=== PATIENT | male | born 1970 | race Caucasian/White ===

== ENCOUNTER 2024-03-14 22:02 | Inpatient (IN) | payer BC, MEDICAID ==
[~2024-03-14] VITALS: Ht 172.7 cm; Wt 93.4 kg
[2024-03-14] MEDS ORDERED: ACETAMINOPHEN 650 MG/SUPP.RECT RC ONE (22:38)
[2024-03-14] MEDS ORDERED: PIPERACI/TAZO 3.375GM/D5W 50ML PB IV ONE (22:38)
[2024-03-14] MEDS ORDERED: VANCOMYCIN 1 GM /D5W 250 ML PB IV ONE (22:38)
[2024-03-14] MEDS: VANCOMYCIN 1 GM in IV D5W 250 ML IV ONE (22:51)
[2024-03-14] MEDS: PIPERACILLIN /TAZOBACTAM 3.375 G in IV D5W 50 ML IV ONE (22:51)
[2024-03-14] MEDS: IV NS 0.9% 1,000 ML BAG IV ONE (22:51)
[2024-03-14] MEDS: ACETAMINOPHEN 650 MG/SUPP.RECT RC ONE (22:51)
[2024-03-14 23:02] LABS: BASOPHILS % (AUTO) 0.1 % (0.0-2.0); HEMATOCRIT 52 % (39-51); LYMPHOCYTES % (AUTO) 5.7 % (20.0-44.0); MEAN CORPUSCULAR HEMOGLOBIN 32 PG (26.0-33.0); MEAN CORPUSCULAR HGB CONC 35 g/dl (31.0-36.0); MEAN CORPUSCULAR VOLUME 92 fL (80-96); MONOCYTES # (AUTO) 1.8 K/uL (0.1-1.30); NEUTROPHILS # (AUTO) 15.1 K/uL (1.8-8.9); NEUTROPHILS % (AUTO) 84.2 % (43.0-81.0); PLATELET COUNT (AUTO) 186 K/uL (150-450); RED CELL DISTRIBUTION WIDTH 13.2 % (11.5-15.0); WHITE BLOOD COUNT (AUTO) 17.9 K/uL (4.3-11.0)
[2024-03-14 23:09] LABS: CALCIUM, SERUM 9.2 mg/dL (8.5-10.1); CARBON DIOXIDE 32 mmol/L (21-32); CHLORIDE 98 mmol/L (98-107); CREATININE 2.2 mg/dL (0.6-1.3); GLUCOSE 183 mg/dL (74-106); POTASSIUM 3.5 mmol/L (3.5-5.1); SODIUM SERUM 140 mmol/L (136-145); UREA NITROGEN, BLOOD 31 mg/dL (7-18)
[2024-03-14 23:12] LABS: APPEARANCE,URINE CLEAR (CLEAR); BILIRUBIN,URINE 2+ (NEGATIVE); BLOOD, URINE 3+ Ery/uL (NEGATIVE); COLOR,URINE YELLOW (YELLOW); KETONES,URINE TRACE mg/dL (NEGATIVE); LEUKOCYTE ESTERASE ,URINE NEGATIVE (NEGATIVE); NITRITE, URINE POSITIVE (NEGATIVE); PROTEIN,URINE 3+ mg/dl (NEGATIVE); UGLUCOSE NEGATIVE (NEGATIVE)
[2024-03-14 23:19] LABS: INR 1.09 (0.91-1.10); PARTIAL THROMBOPLASTIN TIME 25.8 SEC (24.3-34.3); PROTHROMBIN TIME 11.5 SECS (9.2-11.1)
[2024-03-14 23:21] LABS: LACTIC ACID 4.3 mmol/L (0.4-2.0)
[2024-03-14 23:24] LABS: ALANINE AMINOTRANSFERASE 127 U/L (12-78); ALBUMIN 4.1 g/dL (3.4-5.0); ALKALINE PHOSPHATASE 80 U/L (46-116); ASPARTATE AMINOTRANSFERASE 312 U/L (15-37); BILIRUBIN,DIRECT 0.5 mg/dL (0.0-0.2); BILIRUBIN,TOTAL 1.4 mg/dL (0.2-1.0); TOTAL PROTEIN, SERUM 9.1 g/dL (6.4-8.2)
[2024-03-14 23:30] LABS: ADD URINE CULTURE YES; WBC,URINE 0-2 /HPF (0-3)
[2024-03-14 23:31] LABS: BACTERIA,URINE Moderate /HPF (None Seen); COARSE GRANULAR CASTS,URINE Moderate /LPF (None Seen); SQUAMOUS EPITHELIAL CELL,UR 0-2 /HPF (None Seen)
[2024-03-14 23:44] LABS: LYMPHOCYTES % (MANUAL) 8 % (16-48); MONOCYTES % (MANUAL) 6 % (0-11.0); NEUTROPHILS % (MANUAL) 86 (42-76)
[2024-03-14 23:45] LABS: ANISOCYTOSIS 1+; PLATELET ESTIMATE ADEQUATE
[2024-03-15] VITALS (24 sets, daily range): BP systolic 112–199; BP diastolic 67–123; TEMP 98.1–101.5; O2SAT 86–96
[2024-03-15] MEDS: ASPIRIN 300 MG/SUPP.RECT RC ONE (00:34)
[2024-03-15] MEDS ORDERED: ONDANSETRON HCL/PF 4 MG/2 ML VIAL IVP PRN (01:00)
[2024-03-15] MEDS ORDERED: IV 1/2NS 1000 ML 1,000 ML IV SCH (01:00)
[2024-03-15] MEDS ORDERED: Z GUARD REMEDY 4 OZ OINT TP PRN (01:00)
[2024-03-15] MEDS: hydrALAZINE HCL IV 20 MG VIAL IV PRN (01:36)
[2024-03-15] MEDS: IV NS 0.9% 1,000 ML IV SCH (02:57)
[2024-03-15] MEDS ORDERED: PIPERACILLIN /TAZOBACTAM 3.375 G in IV D5W 50 ML IV SCH (07:00)
[2024-03-15 07:28] LABS: BASOPHILS % (AUTO) 0.1 % (0.0-2.0); HEMATOCRIT 46 % (39-51); HEMOGLOBIN 16.1 g/dL (13.5-17.5); LYMPHOCYTES # (AUTO) 1.1 K/uL (0.8-4.8); LYMPHOCYTES % (AUTO) 6.1 % (20.0-44.0); MEAN CORPUSCULAR HEMOGLOBIN 32 PG (26.0-33.0); MEAN CORPUSCULAR HGB CONC 35 g/dl (31.0-36.0); MEAN CORPUSCULAR VOLUME 92 fL (80-96); MONOCYTES # (AUTO) 1.7 K/uL (0.1-1.30); MONOCYTES % (AUTO) 9.3 % (2.0-12.0); NEUTROPHILS # (AUTO) 15.4 K/uL (1.8-8.9); NEUTROPHILS % (AUTO) 84.5 % (43.0-81.0); PLATELET COUNT (AUTO) 142 K/uL (150-450); RED BLOOD CELL COUNT(AUTO) 5.01 MIL/uL (4.5-6.0); RED CELL DISTRIBUTION WIDTH 13.3 % (11.5-15.0); WHITE BLOOD COUNT (AUTO) 18.2 K/uL (4.3-11.0)
[2024-03-15 07:53] LABS: ALBUMIN 3.1 g/dL (3.4-5.0); BILIRUBIN,TOTAL 1.1 mg/dL (0.2-1.0); CALCIUM, SERUM 7.7 mg/dL (8.5-10.1); CREATININE 1.6 mg/dL (0.6-1.3); POTASSIUM 3.5 mmol/L (3.5-5.1)
[2024-03-15] MEDS: PANTOPRAZOLE 40 MG VIAL IV SCH (09:34)
[2024-03-15] MEDS: PIPERACILLIN /TAZOBACTAM 3.375 G in IV D5W 100 ML IV SCH (09:34)
[2024-03-15] MEDS: HEPARIN SODIUM, PORCINE 5000 UNITS/1 ML VIAL SQ ONE (09:35)
[2024-03-15] MEDS: ACETYLCYSTEINE 10% SOLN 400 MG/4 ML VIAL NEB SCH (12:00)
[2024-03-15] MEDS: IPRATROPIUM NEB FS 0.5 MG/2.5 ML AMPUL.NEB NEB SCH (12:00)
[2024-03-15] MEDS: ALBUTEROL HALF STRENGTH 1.25 MG/3 ML VIAL.NEB NEB SCH (12:00)
[2024-03-15] MEDS: VANCOMYCIN 1 GM in IV D5W 250ml IV SCH (12:48)
[2024-03-15 13:01] LABS: ABG BASE EXCESS 0.7 mmol/L (-2.0-3.0); ABG OXYGEN SATURATION 90.7 % (94.0-98.0); ABG PCO2 52.9 mmHg (35.0-48.0); ABG PH 7.338 (7.350-7.450); ABG PO2 60.7 mmHg (83.0-108.0); ABG TOTAL HEMOGLOBIN 17.5 G/dL (13.5-17.5); MetHb 0.3 % (0.0-1.5); O2Hb 89.5 % (94.0-97.0); SITE, ABG RIGHT RADIAL
[2024-03-15] MEDS: ACETAMINOPHEN 650 MG/SUPP.RECT RC PRN (13:36)
[2024-03-15] MEDS: Sodium Bicarbonate 100 MEQ in IV D5 / 0.2% NACL 1,000 ML IV PRN (14:10)
[2024-03-15] MEDS: IV D5W 1,000 ML IV ONE (14:22)
[2024-03-15] MEDS ORDERED: LIDOCAINE 1% INJ 50 ML MDV IJ ONE (16:30)
[2024-03-15 16:36] LABS: CREATININE, URINE 115.8 MG/DL (30.0-125.0); URINE TOTAL PROTEIN 172.7 mg/dL (0-11.9)
[2024-03-15 16:38] LABS: AMPHETAMINE, URINE NEGATIVE (NEGATIVE); BARBITURATE, URINE NEGATIVE (NEGATIVE); BENZODIAZEPINE, URINE NEGATIVE (NEGATIVE); CANNABINOID, URINE NEGATIVE (NEGATIVE); COCCAINE, URINE NEGATIVE (NEGATIVE); OPIATE, URINE NEGATIVE (NEGATIVE); PHENCYCLIDINE SCREEN,URINE NEGATIVE (NEGATIVE)
[2024-03-15] MEDS ORDERED: VANCOMYCIN HCL 1.25 GM in IV D5W 250 ML IV SCH (17:00)
[2024-03-15 17:17] LABS: ABG BASE EXCESS 1.7 mmol/L (-2.0-3.0); ABG PCO2 44.5 mmHg (35.0-48.0); ABG PH 7.401 (7.350-7.450); ABG PO2 61.7 mmHg (83.0-108.0); COHb 0.2 % (0.5-1.5); MetHb 0.3 % (0.0-1.5); O2Hb 91.5 % (94.0-97.0)
[2024-03-15 18:25] LABS: CHOLESTEROL 221 mg/dL (<200); HDL CHOLESTEROL 31 mg/dL (40-60); LDL 169 mg/dL (0-99); TRIGLYCERIDES 195 mg/dL (30-150)
[2024-03-15] MEDS: ACYCLOVIR IV 500 MG in IV D5W 100 ML IV SCH (21:00)
[2024-03-15] MEDS: SODIUM BICARBONATE SYR 50 MEQ/50 ML DISP.SYRIN ONE (21:41)
[2024-03-16] VITALS (47 sets, daily range): BP systolic 100–176; BP diastolic 69–122; TEMP 97.7–101.8; O2SAT 81–99
[2024-03-16] MEDS: hydrALAZINE HCL IV 20 MG VIAL IV PRN ×2 (00:15→03:13)
[2024-03-16 04:49] LABS: BASOPHILS % (AUTO) 0.2 % (0.0-2.0); HEMATOCRIT 43 % (39-51); HEMOGLOBIN 14.9 g/dL (13.5-17.5); LYMPHOCYTES # (AUTO) 0.5 K/uL (0.8-4.8); LYMPHOCYTES % (AUTO) 3.2 % (20.0-44.0); MEAN CORPUSCULAR HEMOGLOBIN 32 PG (26.0-33.0); MEAN CORPUSCULAR HGB CONC 34 g/dl (31.0-36.0); MEAN CORPUSCULAR VOLUME 92 fL (80-96); MONOCYTES # (AUTO) 1.2 K/uL (0.1-1.30); MONOCYTES % (AUTO) 7.3 % (2.0-12.0); NEUTROPHILS # (AUTO) 14.2 K/uL (1.8-8.9); NEUTROPHILS % (AUTO) 89.3 % (43.0-81.0); PLATELET COUNT (AUTO) 145 K/uL (150-450); RED BLOOD CELL COUNT(AUTO) 4.71 MIL/uL (4.5-6.0); RED CELL DISTRIBUTION WIDTH 13.3 % (11.5-15.0); WHITE BLOOD COUNT (AUTO) 15.9 K/uL (4.3-11.0)
[2024-03-16 05:10] LABS: ALBUMIN 2.8 g/dL (3.4-5.0); BILIRUBIN,TOTAL 1.2 mg/dL (0.2-1.0); CALCIUM, SERUM 7.4 mg/dL (8.5-10.1); CREATININE 1.7 mg/dL (0.6-1.3); MAGNESIUM 2.3 mg/dL (1.8-2.4); PHOSPHORUS 3.7 mg/dL (2.5-4.9); POTASSIUM 3.5 mmol/L (3.5-5.1); TOTAL PROTEIN, SERUM 6.5 g/dL (6.4-8.2)
[2024-03-16] MEDS ORDERED: Sodium Bicarbonate 100 MEQ in IV D5 / 0.2% NACL 1,000 ML IV SCH (07:45)
[2024-03-16] MEDS: IV D5/0.45 NACL 1,000 ML IV PRN (08:15)
[2024-03-16 09:27] LABS: ABG BASE EXCESS 7.4 mmol/L (-2.0-3.0); ABG OXYGEN SATURATION 92.6 % (94.0-98.0); ABG PCO2 57.2 mmHg (35.0-48.0); ABG PH 7.396 (7.350-7.450); ABG PO2 62.7 mmHg (83.0-108.0); ABG TOTAL HEMOGLOBIN 15.1 G/dL (13.5-17.5); COHb 0.7 % (0.5-1.5); MetHb 0.2 % (0.0-1.5); O2Hb 91.8 % (94.0-97.0); SITE, ABG RIGHT RADIAL
[2024-03-16] MEDS ORDERED: ETOMIDATE 2 MG/ML VIAL IV ONE (14:34)
[2024-03-16 14:44] LABS: ABG BASE EXCESS 6.4 mmol/L (-2.0-3.0); ABG OXYGEN SATURATION 97.2 % (94.0-98.0); ABG PCO2 43.7 mmHg (35.0-48.0); ABG PH 7.468 (7.350-7.450); ABG PO2 90.6 mmHg (83.0-108.0); ABG TOTAL HEMOGLOBIN 14.6 G/dL (13.5-17.5); COHb 0.3 % (0.5-1.5); MetHb 0.1 % (0.0-1.5); O2Hb 96.8 % (94.0-97.0); PEEP,BG 5 cm H2O; SITE, ABG RIGHT RADIAL; VT, ABG 550 mL
[2024-03-16 15:03] LABS: HIV-1 p24 ANTIGEN NON REACTIVE (NONREACTIVE); HIV-1/2 ANTIBODY NON REACTIVE (NONREACTIVE)
[2024-03-16] MEDS: ACYCLOVIR IV 500 MG in IV D5W 100 ML IV SCH (21:09)
[2024-03-17] VITALS (54 sets, daily range): BP systolic 109–162; BP diastolic 67–96; TEMP 99.9–100.8; O2SAT 94–100
[2024-03-17 04:55] LABS: BASOPHILS % (AUTO) 0.1 % (0.0-2.0); EOSINOPHILS % (AUTO) 0.1 % (0.0-6.0); HEMATOCRIT 38 % (39-51); HEMOGLOBIN 13.5 g/dL (13.5-17.5); LYMPHOCYTES # (AUTO) 0.9 K/uL (0.8-4.8); LYMPHOCYTES % (AUTO) 6.6 % (20.0-44.0); MEAN CORPUSCULAR HEMOGLOBIN 32 PG (26.0-33.0); MEAN CORPUSCULAR HGB CONC 35 g/dl (31.0-36.0); MEAN CORPUSCULAR VOLUME 91 fL (80-96); MONOCYTES # (AUTO) 0.8 K/uL (0.1-1.30); MONOCYTES % (AUTO) 6.2 % (2.0-12.0); NEUTROPHILS # (AUTO) 11.5 K/uL (1.8-8.9); PLATELET COUNT (AUTO) 122 K/uL (150-450); RED BLOOD CELL COUNT(AUTO) 4.21 MIL/uL (4.5-6.0); RED CELL DISTRIBUTION WIDTH 13.4 % (11.5-15.0); WHITE BLOOD COUNT (AUTO) 13.3 K/uL (4.3-11.0)
[2024-03-17 05:11] LABS: ALBUMIN 2.4 g/dL (3.4-5.0); BILIRUBIN,TOTAL 1.5 mg/dL (0.2-1.0); CALCIUM, SERUM 7.8 mg/dL (8.5-10.1); CREATININE 2.2 mg/dL (0.6-1.3)
[2024-03-17 05:18] LABS: POTASSIUM 2.5 mmol/L (3.5-5.1)
[2024-03-17] MEDS: POTASSIUM CL. PREMIX PERIPHER. 50 ML IV SCH ×2 (07:44→18:13)
[2024-03-17 08:10] LABS: PTH, INTACT 57 pg/mL (15-65)
[2024-03-17 08:10] LABS: FOLIC ACID > 20.0 ng/mL (>3.0)
[2024-03-17 09:30] LABS: ABG BASE EXCESS 9.1 mmol/L (-2.0-3.0); ABG OXYGEN SATURATION 92.2 % (94.0-98.0); ABG PCO2 41.4 mmHg (35.0-48.0); ABG PH 7.518 (7.350-7.450); ABG PO2 57.5 mmHg (83.0-108.0); ABG TOTAL HEMOGLOBIN 13.9 G/dL (13.5-17.5); COHb 0.3 % (0.5-1.5); MetHb 0.3 % (0.0-1.5); O2Hb 91.6 % (94.0-97.0); PEEP,BG 5 cm H2O; SITE, ABG RIGHT RADIAL; VT, ABG 525 mL
[2024-03-17] MEDS: LEVETIRACETAM (500MG) 500 MG in IV NS 0.9% 100 ML IV SCH (09:52)
[2024-03-17] MEDS: VANCOMYCIN HCL 1.25 GM in IV D5W 250 ML IV SCH (10:53)
[2024-03-17 15:15] LABS: CALCIUM, SERUM 7.8 mg/dL (8.5-10.1); CREATININE 2.4 mg/dL (0.6-1.3); POTASSIUM 2.8 mmol/L (3.5-5.1)
[2024-03-18] VITALS (49 sets, daily range): BP systolic 108–175; BP diastolic 75–107; TEMP 98.3–101.4; O2SAT 90–100
[2024-03-18 05:54] LABS: MAGNESIUM 2.3 mg/dL (1.8-2.4); PHOSPHORUS 2.4 mg/dL (2.5-4.9)
[2024-03-18 05:56] LABS: ALBUMIN 2.1 g/dL (3.4-5.0); BILIRUBIN,TOTAL 1.3 mg/dL (0.2-1.0); CALCIUM, SERUM 7.8 mg/dL (8.5-10.1); CREATININE 2.1 mg/dL (0.6-1.3); POTASSIUM 2.9 mmol/L (3.5-5.1); TOTAL PROTEIN, SERUM 5.8 g/dL (6.4-8.2)
[2024-03-18] MEDS: POTASSIUM CL. PREMIX PERIPHER. 50 ML IV SCH (06:33)
[2024-03-18 09:05] LABS: BASOPHILS % (AUTO) 0.1 % (0.0-2.0); EOSINOPHILS % (AUTO) 0.1 % (0.0-6.0); HEMATOCRIT 38 % (39-51); HEMOGLOBIN 12.8 g/dL (13.5-17.5); LYMPHOCYTES # (AUTO) 0.7 K/uL (0.8-4.8); LYMPHOCYTES % (AUTO) 5.1 % (20.0-44.0); MEAN CORPUSCULAR HEMOGLOBIN 32 PG (26.0-33.0); MEAN CORPUSCULAR HGB CONC 34 g/dl (31.0-36.0); MEAN CORPUSCULAR VOLUME 92 fL (80-96); MONOCYTES # (AUTO) 0.8 K/uL (0.1-1.30); MONOCYTES % (AUTO) 5.8 % (2.0-12.0); NEUTROPHILS # (AUTO) 11.5 K/uL (1.8-8.9); NEUTROPHILS % (AUTO) 88.9 % (43.0-81.0); PLATELET COUNT (AUTO) 145 K/uL (150-450); RED BLOOD CELL COUNT(AUTO) 4.08 MIL/uL (4.5-6.0); RED CELL DISTRIBUTION WIDTH 12.9 % (11.5-15.0); WHITE BLOOD COUNT (AUTO) 12.9 K/uL (4.3-11.0)
[2024-03-18 09:32] LABS: ALBUMIN 2.2 g/dL (3.4-5.0); BILIRUBIN,TOTAL 1.3 mg/dL (0.2-1.0); CALCIUM, SERUM 7.9 mg/dL (8.5-10.1); CREATININE 2.3 mg/dL (0.6-1.3); POTASSIUM 3.1 mmol/L (3.5-5.1); TOTAL PROTEIN, SERUM 5.9 g/dL (6.4-8.2)
[2024-03-18] MEDS: IV D5/ 0.9% NACL 1,000 ML IV ONE (12:25)
[2024-03-18] MEDS: Sodium Phosphate 15 MMOL in IV NS 0.9% 245 ML IV SCH (16:17)
[2024-03-18] MEDS: MEROPENEM 1 G in IV NS 0.9% 100 ML IV SCH (17:36)
[2024-03-19] VITALS (39 sets, daily range): BP systolic 115–180; BP diastolic 76–104; TEMP 98.4–100.4; O2SAT 92–99
[2024-03-19 05:26] LABS: BASOPHILS % (AUTO) 0.1 % (0.0-2.0); EOSINOPHILS % (AUTO) 0.4 % (0.0-6.0); HEMATOCRIT 31 % (39-51); HEMOGLOBIN 10.7 g/dL (13.5-17.5); LYMPHOCYTES # (AUTO) 0.8 K/uL (0.8-4.8); LYMPHOCYTES % (AUTO) 7.2 % (20.0-44.0); MEAN CORPUSCULAR HEMOGLOBIN 32 PG (26.0-33.0); MEAN CORPUSCULAR HGB CONC 35 g/dl (31.0-36.0); MEAN CORPUSCULAR VOLUME 93 fL (80-96); MONOCYTES # (AUTO) 0.8 K/uL (0.1-1.30); MONOCYTES % (AUTO) 6.9 % (2.0-12.0); NEUTROPHILS # (AUTO) 9.9 K/uL (1.8-8.9); NEUTROPHILS % (AUTO) 85.4 % (43.0-81.0); PLATELET COUNT (AUTO) 147 K/uL (150-450); RED BLOOD CELL COUNT(AUTO) 3.35 MIL/uL (4.5-6.0); RED CELL DISTRIBUTION WIDTH 12.9 % (11.5-15.0); WHITE BLOOD COUNT (AUTO) 11.6 K/uL (4.3-11.0)
[2024-03-19 05:39] LABS: BILIRUBIN,TOTAL 0.9 mg/dL (0.2-1.0); CALCIUM, SERUM 7.8 mg/dL (8.5-10.1); CREATININE 2.3 mg/dL (0.6-1.3); POTASSIUM 3.4 mmol/L (3.5-5.1); TOTAL PROTEIN, SERUM 5.6 g/dL (6.4-8.2)
[2024-03-19 07:38] LABS: ABG BASE EXCESS 3.8 mmol/L (-2.0-3.0); ABG OXYGEN SATURATION 94.4 % (94.0-98.0); ABG PCO2 32.6 mmHg (35.0-48.0); ABG PH 7.524 (7.350-7.450); ABG PO2 72.6 mmHg (83.0-108.0); COHb 0.3 % (0.5-1.5); MetHb 0.2 % (0.0-1.5); O2Hb 93.9 % (94.0-97.0); PEEP,BG 5 cm H2O; SITE, ABG RIGHT RADIAL; VT, ABG 500 mL
[2024-03-19] MEDS: IV D5/ 0.9% NACL 1,000 ML IV PRN (07:58)
[2024-03-19] MEDS: POTASSIUM CL. PREMIX PERIPHER. 50 ML IV SCH (11:53)
[2024-03-19] MEDS: JEVITY 1.2 CAL 1,000 ML BOTTLE GT PRN (12:56)
[2024-03-19] MEDS: DOXYCYCLINE 100 MG in IV D5W 100 ML IV SCH (20:59)
[2024-03-20] VITALS (45 sets, daily range): BP systolic 125–183; BP diastolic 77–136; TEMP 98.7–101.5; O2SAT 97–100
[2024-03-20 04:47] LABS: BASOPHILS % (AUTO) 0.3 % (0.0-2.0); EOSINOPHILS # (AUTO) 0.1 K/uL (0.0-0.7); EOSINOPHILS % (AUTO) 1.1 % (0.0-6.0); HEMATOCRIT 32 % (39-51); LYMPHOCYTES # (AUTO) 0.8 K/uL (0.8-4.8); LYMPHOCYTES % (AUTO) 8.2 % (20.0-44.0); MEAN CORPUSCULAR HEMOGLOBIN 32 PG (26.0-33.0); MEAN CORPUSCULAR HGB CONC 34 g/dl (31.0-36.0); MEAN CORPUSCULAR VOLUME 95 fL (80-96); MONOCYTES # (AUTO) 0.9 K/uL (0.1-1.30); MONOCYTES % (AUTO) 9.8 % (2.0-12.0); NEUTROPHILS # (AUTO) 7.6 K/uL (1.8-8.9); NEUTROPHILS % (AUTO) 80.6 % (43.0-81.0); PLATELET COUNT (AUTO) 179 K/uL (150-450); RED BLOOD CELL COUNT(AUTO) 3.43 MIL/uL (4.5-6.0); RED CELL DISTRIBUTION WIDTH 13.4 % (11.5-15.0); WHITE BLOOD COUNT (AUTO) 9.5 K/uL (4.3-11.0)
[2024-03-20 05:07] LABS: BILIRUBIN,TOTAL 0.7 mg/dL (0.2-1.0); CALCIUM, SERUM 8.1 mg/dL (8.5-10.1); POTASSIUM 3.4 mmol/L (3.5-5.1); TOTAL PROTEIN, SERUM 5.8 g/dL (6.4-8.2)
[2024-03-20] MEDS: PANTOPRAZOLE 40 MG/PACK PACK GT SCH (08:32)
[2024-03-20] MEDS: POLYVINYL ALCOHOL 15 ML BOTTLE EACHEYE PRN (08:46)
[2024-03-20 10:10] LABS: METHYLMALONIC ACID 340 nmol/L (0-378)
[2024-03-20] MEDS: PROPOFOL 100 ML IV PRN (10:10)
[2024-03-20] MEDS: ROCURONIUM BROMIDE 50 MG/5 ML IV ONE (11:10)
[2024-03-20] MEDS: POTASSIUM CL. PREMIX PERIPHER. 50 ML IV SCH (11:56)
[2024-03-20 12:07] LABS: *SPE A/G RATIO 0.9 (0.7-1.7); *SPE ALBUMIN 2.9 g/dL (2.9-4.4); *SPE ALPHA-1-GLOBULIN 0.3 g/dL (0.0-0.4); *SPE ALPHA-2-GLOBULIN 0.9 g/dL (0.4-1.0); *SPE GLOBULIN, TOTAL 3.2 g/dL (2.2-3.9); *SPE M-SPIKE Not Observed g/dL (Not Observed); *SPE PROTEIN TOTAL 6.1 g/dL (6.0-8.5); *SPEGAMMA GLOBULIN 1.1 g/dL (0.4-1.8)
[2024-03-20 15:14] LABS: CSF GLUCOSE 79 mg/dL (40-70)
[2024-03-20 16:04] LABS: CSF APPEARANCE CLEAR (CLEAR); CSF COLOR COLORLESS (COLORLESS); CSF VOLUME 17.6 mL
[2024-03-20 16:06] LABS: CSF WHITE BLOOD CELL COUNT 0 /cumm (0-5)
[2024-03-20] MEDS: JEVITY 1.2 CAL 1,000 ML BOTTLE GT PRN (16:55)
[2024-03-20] MEDS: ACETAMINOPHEN 650 MG/20.3 ML UDC NG PRN (16:56)
[2024-03-21] VITALS (30 sets, daily range): BP systolic 134–176; BP diastolic 65–109; TEMP 99.5–99.9; O2SAT 91–98
[2024-03-21 04:44] LABS: BASOPHILS % (AUTO) 0.3 % (0.0-2.0); EOSINOPHILS # (AUTO) 0.1 K/uL (0.0-0.7); EOSINOPHILS % (AUTO) 1.2 % (0.0-6.0); HEMATOCRIT 32 % (39-51); LYMPHOCYTES # (AUTO) 0.9 K/uL (0.8-4.8); MEAN CORPUSCULAR HEMOGLOBIN 32 PG (26.0-33.0); MEAN CORPUSCULAR HGB CONC 34 g/dl (31.0-36.0); MEAN CORPUSCULAR VOLUME 94 fL (80-96); MONOCYTES # (AUTO) 1.1 K/uL (0.1-1.30); MONOCYTES % (AUTO) 12.6 % (2.0-12.0); NEUTROPHILS # (AUTO) 6.5 K/uL (1.8-8.9); NEUTROPHILS % (AUTO) 74.9 % (43.0-81.0); PLATELET COUNT (AUTO) 222 K/uL (150-450); RED CELL DISTRIBUTION WIDTH 13.2 % (11.5-15.0); WHITE BLOOD COUNT (AUTO) 8.6 K/uL (4.3-11.0)
[2024-03-21 04:46] LABS: CALCIUM, SERUM 8.1 mg/dL (8.5-10.1); CREATININE 1.8 mg/dL (0.6-1.3); POTASSIUM 3.6 mmol/L (3.5-5.1)
[2024-03-21 04:57] LABS: BILIRUBIN,TOTAL 0.5 mg/dL (0.2-1.0); TOTAL PROTEIN, SERUM 5.9 g/dL (6.4-8.2)
[2024-03-21] MEDS ORDERED: CIPROFLOXACIN HCL 3.5 GM TUBE EACHEYE SCH (20:00)
[2024-03-21] MEDS: TOBRAMYCIN/DEXAMETH OPHTH OINT 3.5 GM TUBE EACHEYE SCH (21:15)
[2024-03-21] MEDS: MORPHINE SULFATE INJ 2 MG/ML DISP.SYRIN IV PRN (23:38)
[2024-03-22] VITALS (27 sets, daily range): BP systolic 136–180; BP diastolic 77–122; TEMP 98–100.2; O2SAT 93–100
[2024-03-22 04:47] LABS: BASOPHILS % (AUTO) 0.4 % (0.0-2.0); EOSINOPHILS # (AUTO) 0.1 K/uL (0.0-0.7); HEMATOCRIT 30 % (39-51); HEMOGLOBIN 10.1 g/dL (13.5-17.5); LYMPHOCYTES # (AUTO) 0.9 K/uL (0.8-4.8); LYMPHOCYTES % (AUTO) 10.3 % (20.0-44.0); MEAN CORPUSCULAR HEMOGLOBIN 32 PG (26.0-33.0); MEAN CORPUSCULAR HGB CONC 34 g/dl (31.0-36.0); MEAN CORPUSCULAR VOLUME 95 fL (80-96); MONOCYTES # (AUTO) 1.2 K/uL (0.1-1.30); MONOCYTES % (AUTO) 12.9 % (2.0-12.0); NEUTROPHILS # (AUTO) 6.8 K/uL (1.8-8.9); NEUTROPHILS % (AUTO) 75.4 % (43.0-81.0); PLATELET COUNT (AUTO) 252 K/uL (150-450); RED BLOOD CELL COUNT(AUTO) 3.13 MIL/uL (4.5-6.0); RED CELL DISTRIBUTION WIDTH 13.5 % (11.5-15.0); WHITE BLOOD COUNT (AUTO) 9.1 K/uL (4.3-11.0)
[2024-03-22 05:01] LABS: CREATININE 1.9 mg/dL (0.6-1.3); POTASSIUM 3.9 mmol/L (3.5-5.1)
[2024-03-22 05:06] LABS: ALBUMIN 1.9 g/dL (3.4-5.0); BILIRUBIN,TOTAL 0.5 mg/dL (0.2-1.0); TOTAL PROTEIN, SERUM 5.6 g/dL (6.4-8.2)
[2024-03-22 10:45] LABS: ABG BASE EXCESS 2.5 mmol/L (-2.0-3.0); ABG OXYGEN SATURATION 94.5 % (94.0-98.0); ABG PCO2 38.2 mmHg (35.0-48.0); ABG PH 7.458 (7.350-7.450); ABG PO2 74.4 mmHg (83.0-108.0); ABG TOTAL HEMOGLOBIN 11.1 G/dL (13.5-17.5); COHb 0.1 % (0.5-1.5); MetHb 0.2 % (0.0-1.5); O2Hb 94.2 % (94.0-97.0); PEEP,BG 5 cm H2O; SITE, ABG RIGHT RADIAL
[2024-03-22 11:12] LABS: *WEST NILE VIRUS, IgG, SERUM Negative (Negative); *WEST NILE VIRUS, IgM, SERUM Positive (Negative)
[2024-03-22] MEDS: IV NS 0.9% 250 ML IV PRN (11:19)
[2024-03-22 13:08] LABS: *ANA ANTI-CENTROMERE B AB <0.2 AI (0.0-0.9); *ANA ANTI-DNA(DS) AB, QN <1 IU/mL (0-9); *ANA ANTI-JO-1 <0.2 AI (0.0-0.9); *ANA ANTICHROMATIN ANTIBODY <0.2 AI (0.0-0.9); *ANA RNP ANTIBODIES <0.2 AI (0.0-0.9); *ANA SJOGREN'S ANTI-SS-A <0.2 AI (0.0-0.9); *ANA SJOGREN'S ANTI-SS-B <0.2 AI (0.0-0.9); *ANAANTI-SCLERODERMA-70 AB <0.2 AI (0.0-0.9); *ANASMITH AB <0.2 AI (0.0-0.9)
[2024-03-22 14:10] LABS: VDRL, CSF Non Reactive (Non Rea:<1:1)
[2024-03-23] VITALS (27 sets, daily range): BP systolic 131–191; BP diastolic 83–116; TEMP 98.5–100.5; O2SAT 92–96
[2024-03-23 04:43] LABS: BASOPHILS # (AUTO) 0.1 K/uL (0.0-0.2); BASOPHILS % (AUTO) 0.5 % (0.0-2.0); EOSINOPHILS # (AUTO) 0.1 K/uL (0.0-0.7); EOSINOPHILS % (AUTO) 0.8 % (0.0-6.0); HEMATOCRIT 32 % (39-51); HEMOGLOBIN 10.6 g/dL (13.5-17.5); LYMPHOCYTES # (AUTO) 0.9 K/uL (0.8-4.8); LYMPHOCYTES % (AUTO) 8.6 % (20.0-44.0); MEAN CORPUSCULAR HEMOGLOBIN 32 PG (26.0-33.0); MEAN CORPUSCULAR HGB CONC 34 g/dl (31.0-36.0); MEAN CORPUSCULAR VOLUME 95 fL (80-96); MONOCYTES # (AUTO) 1.2 K/uL (0.1-1.30); MONOCYTES % (AUTO) 11.5 % (2.0-12.0); NEUTROPHILS # (AUTO) 8.3 K/uL (1.8-8.9); NEUTROPHILS % (AUTO) 78.6 % (43.0-81.0); PLATELET COUNT (AUTO) 313 K/uL (150-450); RED BLOOD CELL COUNT(AUTO) 3.33 MIL/uL (4.5-6.0); RED CELL DISTRIBUTION WIDTH 13.3 % (11.5-15.0); WHITE BLOOD COUNT (AUTO) 10.5 K/uL (4.3-11.0)
[2024-03-23 04:58] LABS: CALCIUM, SERUM 8.6 mg/dL (8.5-10.1); CREATININE 1.7 mg/dL (0.6-1.3); POTASSIUM 4.3 mmol/L (3.5-5.1)
[2024-03-23 05:03] LABS: ALBUMIN 2.1 g/dL (3.4-5.0); BILIRUBIN,TOTAL 0.5 mg/dL (0.2-1.0); TOTAL PROTEIN, SERUM 6.2 g/dL (6.4-8.2)
[2024-03-23] MEDS: hydrALAZINE HCL IV 20 MG VIAL IV ONE (05:53)
[2024-03-23] MEDS ORDERED: NITROGLYCERIN 0.1 MG/HR PATCH.TD24 TD SCH (08:30)
[2024-03-23] MEDS: AMLODIPINE BESYLATE 5 MG TABLET PO SCH (09:22)
[2024-03-23 09:29] LABS: ABG BASE EXCESS 2.6 mmol/L (-2.0-3.0); ABG OXYGEN SATURATION 94.2 % (94.0-98.0); ABG PCO2 45.8 mmHg (35.0-48.0); ABG PH 7.402 (7.350-7.450); ABG PO2 77.9 mmHg (83.0-108.0); ABG TOTAL HEMOGLOBIN 11.6 G/dL (13.5-17.5); COHb 0.3 % (0.5-1.5); MetHb 0.2 % (0.0-1.5); O2Hb 93.7 % (94.0-97.0); PEEP,BG 5 cm H2O; SITE, ABG RIGHT RADIAL
[2024-03-23] MEDS: NITROGLYCERIN PACKET 1 GM PACKET TOP PRN (16:04)
[2024-03-23 17:06] LABS: *CRYPTOCOCCUS AG, CSF Negative (Negative)
[2024-03-24] VITALS (25 sets, daily range): BP systolic 131–174; BP diastolic 84–116; TEMP 98.9–100.3; O2SAT 93–98
[2024-03-24 04:51] LABS: BASOPHILS # (AUTO) 0.1 K/uL (0.0-0.2); BASOPHILS % (AUTO) 0.6 % (0.0-2.0); EOSINOPHILS # (AUTO) 0.1 K/uL (0.0-0.7); HEMATOCRIT 28 % (39-51); HEMOGLOBIN 9.4 g/dL (13.5-17.5); LYMPHOCYTES # (AUTO) 1.1 K/uL (0.8-4.8); LYMPHOCYTES % (AUTO) 11.4 % (20.0-44.0); MEAN CORPUSCULAR HEMOGLOBIN 32 PG (26.0-33.0); MEAN CORPUSCULAR HGB CONC 34 g/dl (31.0-36.0); MEAN CORPUSCULAR VOLUME 95 fL (80-96); MONOCYTES % (AUTO) 10.7 % (2.0-12.0); NEUTROPHILS # (AUTO) 7.2 K/uL (1.8-8.9); NEUTROPHILS % (AUTO) 76.3 % (43.0-81.0); PLATELET COUNT (AUTO) 310 K/uL (150-450); RED CELL DISTRIBUTION WIDTH 13.6 % (11.5-15.0); WHITE BLOOD COUNT (AUTO) 9.4 K/uL (4.3-11.0)
[2024-03-24 05:10] LABS: BILIRUBIN,TOTAL 0.5 mg/dL (0.2-1.0); CALCIUM, SERUM 8.5 mg/dL (8.5-10.1); CREATININE 1.7 mg/dL (0.6-1.3); POTASSIUM 4.3 mmol/L (3.5-5.1); TOTAL PROTEIN, SERUM 5.8 g/dL (6.4-8.2)
[2024-03-24 09:19] LABS: BAND % (MANUAL) 2 % (0.0-5.0); EOSINOPHILS % (MANUAL) 1 % (0-4); LYMPHOCYTES % (MANUAL) 16 % (16-48); MONOCYTES % (MANUAL) 4 % (0-11.0); NEUTROPHILS % (MANUAL) 77 (42-76); PLATELET ESTIMATE ADEQUATE
[2024-03-24] MEDS: LORAZEPAM INJ 2 MG/ML VIAL IV PRN (12:45)
[2024-03-24] MEDS: DOXYCYCLINE HYCLATE (100 MG) 100 MG TABLET GT SCH (20:54)
[2024-03-25] VITALS (25 sets, daily range): BP systolic 129–172; BP diastolic 80–104; TEMP 99.2–100; O2SAT 95–100
[2024-03-25 07:23] LABS: BASOPHILS # (AUTO) 0.1 K/uL (0.0-0.2); BASOPHILS % (AUTO) 0.7 % (0.0-2.0); EOSINOPHILS # (AUTO) 0.1 K/uL (0.0-0.7); EOSINOPHILS % (AUTO) 1.2 % (0.0-6.0); HEMATOCRIT 30 % (39-51); LYMPHOCYTES # (AUTO) 1.3 K/uL (0.8-4.8); LYMPHOCYTES % (AUTO) 11.2 % (20.0-44.0); MEAN CORPUSCULAR HEMOGLOBIN 32 PG (26.0-33.0); MEAN CORPUSCULAR HGB CONC 33 g/dl (31.0-36.0); MEAN CORPUSCULAR VOLUME 96 fL (80-96); MONOCYTES # (AUTO) 0.8 K/uL (0.1-1.30); MONOCYTES % (AUTO) 6.7 % (2.0-12.0); NEUTROPHILS # (AUTO) 9.6 K/uL (1.8-8.9); NEUTROPHILS % (AUTO) 80.2 % (43.0-81.0); PLATELET COUNT (AUTO) 331 K/uL (150-450); RED BLOOD CELL COUNT(AUTO) 3.14 MIL/uL (4.5-6.0); RED CELL DISTRIBUTION WIDTH 13.6 % (11.5-15.0)
[2024-03-25 08:15] LABS: CALCIUM, SERUM 8.6 mg/dL (8.5-10.1); CREATININE 1.5 mg/dL (0.6-1.3); POTASSIUM 4.2 mmol/L (3.5-5.1)
[2024-03-25 08:18] LABS: ALBUMIN 2.3 g/dL (3.4-5.0); BILIRUBIN,TOTAL 0.6 mg/dL (0.2-1.0); TOTAL PROTEIN, SERUM 6.5 g/dL (6.4-8.2)
[2024-03-26] VITALS (38 sets, daily range): BP systolic 120–158; BP diastolic 70–103; TEMP 99–100.7; O2SAT 90–98
[2024-03-26 04:22] LABS: BASOPHILS # (AUTO) 0.1 K/uL (0.0-0.2); BASOPHILS % (AUTO) 0.6 % (0.0-2.0); EOSINOPHILS # (AUTO) 0.1 K/uL (0.0-0.7); EOSINOPHILS % (AUTO) 0.7 % (0.0-6.0); HEMATOCRIT 29 % (39-51); HEMOGLOBIN 9.6 g/dL (13.5-17.5); LYMPHOCYTES # (AUTO) 1.3 K/uL (0.8-4.8); LYMPHOCYTES % (AUTO) 10.1 % (20.0-44.0); MEAN CORPUSCULAR HEMOGLOBIN 32 PG (26.0-33.0); MEAN CORPUSCULAR HGB CONC 33 g/dl (31.0-36.0); MEAN CORPUSCULAR VOLUME 96 fL (80-96); MONOCYTES # (AUTO) 0.9 K/uL (0.1-1.30); NEUTROPHILS # (AUTO) 10.2 K/uL (1.8-8.9); NEUTROPHILS % (AUTO) 81.6 % (43.0-81.0); PLATELET COUNT (AUTO) 318 K/uL (150-450); RED BLOOD CELL COUNT(AUTO) 3.02 MIL/uL (4.5-6.0); WHITE BLOOD COUNT (AUTO) 12.5 K/uL (4.3-11.0)
[2024-03-26 04:36] LABS: CALCIUM, SERUM 8.2 mg/dL (8.5-10.1); CREATININE 1.6 mg/dL (0.6-1.3); POTASSIUM 4.3 mmol/L (3.5-5.1)
[2024-03-26 04:42] LABS: ALBUMIN 2.2 g/dL (3.4-5.0); BILIRUBIN,TOTAL 0.6 mg/dL (0.2-1.0); TOTAL PROTEIN, SERUM 6.2 g/dL (6.4-8.2)
[2024-03-26 04:53] LABS: MAGNESIUM 2.2 mg/dL (1.8-2.4); PHOSPHORUS 5.1 mg/dL (2.5-4.9)
[2024-03-26] MEDS ORDERED: CEFEPIME 1 GM in IV D5W 50 ML IV SCH (21:00)
[2024-03-26] MEDS ORDERED: CEFEPIME 1 GM VIAL ONE (23:10)
[2024-03-26] MEDS: CEFEPIME 2 GM in IV D5W 100 ML IV SCH (23:26)
[2024-03-27] VITALS (46 sets, daily range): BP systolic 120–247; BP diastolic 69–115; TEMP 99.1–101; O2SAT 90–98
[2024-03-27 04:27] LABS: BASOPHILS % (AUTO) 0.1 % (0.0-2.0); EOSINOPHILS % (AUTO) 0.1 % (0.0-6.0); HEMATOCRIT 28 % (39-51); HEMOGLOBIN 9.3 g/dL (13.5-17.5); LYMPHOCYTES # (AUTO) 0.9 K/uL (0.8-4.8); LYMPHOCYTES % (AUTO) 5.5 % (20.0-44.0); MEAN CORPUSCULAR HEMOGLOBIN 32 PG (26.0-33.0); MEAN CORPUSCULAR HGB CONC 33 g/dl (31.0-36.0); MEAN CORPUSCULAR VOLUME 96 fL (80-96); MONOCYTES # (AUTO) 0.9 K/uL (0.1-1.30); MONOCYTES % (AUTO) 5.3 % (2.0-12.0); PLATELET COUNT (AUTO) 304 K/uL (150-450); RED BLOOD CELL COUNT(AUTO) 2.93 MIL/uL (4.5-6.0); RED CELL DISTRIBUTION WIDTH 13.6 % (11.5-15.0); WHITE BLOOD COUNT (AUTO) 16.9 K/uL (4.3-11.0)
[2024-03-27 05:17] LABS: ALBUMIN 2.3 g/dL (3.4-5.0); BILIRUBIN,TOTAL 0.5 mg/dL (0.2-1.0); CALCIUM, SERUM 8.5 mg/dL (8.5-10.1); CREATININE 1.7 mg/dL (0.6-1.3); MAGNESIUM 2.2 mg/dL (1.8-2.4); TOTAL PROTEIN, SERUM 6.2 g/dL (6.4-8.2)
[2024-03-27] MEDS: FREE WATER VIA TUBE FEEDING GT SCH (09:04)
[2024-03-27 10:49] LABS: ABG BASE EXCESS 4.8 mmol/L (-2.0-3.0); ABG OXYGEN SATURATION 95.2 % (94.0-98.0); ABG PCO2 44.6 mmHg (35.0-48.0); ABG PH 7.439 (7.350-7.450); ABG PO2 83.1 mmHg (83.0-108.0); ABG TOTAL HEMOGLOBIN 10.3 G/dL (13.5-17.5); COHb 0.2 % (0.5-1.5); MetHb 0.3 % (0.0-1.5); O2Hb 94.7 % (94.0-97.0); PEEP,BG 5 cm H2O; SITE, ABG LEFT RADIAL
[2024-03-28] VITALS (29 sets, daily range): BP systolic 124–163; BP diastolic 78–105; TEMP 98.8–100.5; O2SAT 94–100
[2024-03-28 04:17] LABS: BASOPHILS % (AUTO) 0.4 % (0.0-2.0); EOSINOPHILS # (AUTO) 0.1 K/uL (0.0-0.7); EOSINOPHILS % (AUTO) 0.6 % (0.0-6.0); HEMATOCRIT 26 % (39-51); HEMOGLOBIN 8.9 g/dL (13.5-17.5); LYMPHOCYTES # (AUTO) 1.3 K/uL (0.8-4.8); LYMPHOCYTES % (AUTO) 11.3 % (20.0-44.0); MEAN CORPUSCULAR HEMOGLOBIN 32 PG (26.0-33.0); MEAN CORPUSCULAR HGB CONC 34 g/dl (31.0-36.0); MEAN CORPUSCULAR VOLUME 95 fL (80-96); MONOCYTES # (AUTO) 0.5 K/uL (0.1-1.30); MONOCYTES % (AUTO) 4.9 % (2.0-12.0); NEUTROPHILS # (AUTO) 9.2 K/uL (1.8-8.9); NEUTROPHILS % (AUTO) 82.8 % (43.0-81.0); PLATELET COUNT (AUTO) 243 K/uL (150-450); RED BLOOD CELL COUNT(AUTO) 2.77 MIL/uL (4.5-6.0); RED CELL DISTRIBUTION WIDTH 13.3 % (11.5-15.0); WHITE BLOOD COUNT (AUTO) 11.1 K/uL (4.3-11.0)
[2024-03-28 04:56] LABS: CALCIUM, SERUM 8.7 mg/dL (8.5-10.1); CREATININE 1.5 mg/dL (0.6-1.3); POTASSIUM 3.8 mmol/L (3.5-5.1)
[2024-03-28] MEDS: VECURONIUM 10 MG VIAL IV PRN (13:33)
[2024-03-28] MEDS: FENTANYL PF 100MCG/2ML AMPUL IV PRN (13:33)
[2024-03-28] MEDS: MIDAZOLAM HCL 2 MG/2ML VIAL IV PRN (13:33)
[2024-03-28] MEDS: LABETALOL 20 MG/4 ML VIAL IV ONE (13:45)
[2024-03-28] MEDS ORDERED: ETOMIDATE 2 MG/ML VIAL IV ONE (15:30)
[2024-03-29] VITALS (24 sets, daily range): BP systolic 125–158; BP diastolic 74–106; TEMP 97.9–100.8; O2SAT 97–100
[2024-03-29 05:46] LABS: BASOPHILS % (AUTO) 0.3 % (0.0-2.0); EOSINOPHILS % (AUTO) 0.2 % (0.0-6.0); HEMATOCRIT 25 % (39-51); HEMOGLOBIN 8.7 g/dL (13.5-17.5); LYMPHOCYTES % (AUTO) 7.3 % (20.0-44.0); MEAN CORPUSCULAR HEMOGLOBIN 33 PG (26.0-33.0); MEAN CORPUSCULAR HGB CONC 35 g/dl (31.0-36.0); MEAN CORPUSCULAR VOLUME 94 fL (80-96); MONOCYTES # (AUTO) 0.7 K/uL (0.1-1.30); MONOCYTES % (AUTO) 5.5 % (2.0-12.0); NEUTROPHILS # (AUTO) 11.3 K/uL (1.8-8.9); NEUTROPHILS % (AUTO) 86.7 % (43.0-81.0); PLATELET COUNT (AUTO) 225 K/uL (150-450); RED BLOOD CELL COUNT(AUTO) 2.64 MIL/uL (4.5-6.0); RED CELL DISTRIBUTION WIDTH 13.4 % (11.5-15.0)
[2024-03-29 06:22] LABS: CALCIUM, SERUM 8.5 mg/dL (8.5-10.1); CREATININE 1.3 mg/dL (0.6-1.3); POTASSIUM 4.1 mmol/L (3.5-5.1)
[2024-03-29 06:27] LABS: ALBUMIN 2.3 g/dL (3.4-5.0); BILIRUBIN,TOTAL 0.7 mg/dL (0.2-1.0)
[2024-03-29 06:28] LABS: MAGNESIUM 2.2 mg/dL (1.8-2.4); PHOSPHORUS 3.9 mg/dL (2.5-4.9)
[2024-03-29] MEDS ORDERED: DOXYCYCLINE 100 MG VIAL ONE (22:54)
[2024-03-29] MEDS: DOXYCYCLINE 100 MG in IV D5W 100 ML IV ONE (23:06)
[2024-03-30] VITALS (20 sets, daily range): BP systolic 115–152; BP diastolic 75–99; TEMP 100–100.9; O2SAT 95–99
[2024-03-30 05:12] LABS: BASOPHILS % (AUTO) 0.3 % (0.0-2.0); EOSINOPHILS % (AUTO) 0.3 % (0.0-6.0); HEMATOCRIT 27 % (39-51); LYMPHOCYTES # (AUTO) 0.9 K/uL (0.8-4.8); LYMPHOCYTES % (AUTO) 7.2 % (20.0-44.0); MEAN CORPUSCULAR HEMOGLOBIN 32 PG (26.0-33.0); MEAN CORPUSCULAR HGB CONC 34 g/dl (31.0-36.0); MEAN CORPUSCULAR VOLUME 95 fL (80-96); MONOCYTES # (AUTO) 0.8 K/uL (0.1-1.30); MONOCYTES % (AUTO) 6.2 % (2.0-12.0); NEUTROPHILS # (AUTO) 10.5 K/uL (1.8-8.9); PLATELET COUNT (AUTO) 213 K/uL (150-450); RED BLOOD CELL COUNT(AUTO) 2.81 MIL/uL (4.5-6.0); RED CELL DISTRIBUTION WIDTH 14.1 % (11.5-15.0); WHITE BLOOD COUNT (AUTO) 12.1 K/uL (4.3-11.0)
[2024-03-30 05:49] LABS: CALCIUM, SERUM 7.8 mg/dL (8.5-10.1); CREATININE 1.4 mg/dL (0.6-1.3); MAGNESIUM 2.2 mg/dL (1.8-2.4); PHOSPHORUS 4.6 mg/dL (2.5-4.9); POTASSIUM 3.3 mmol/L (3.5-5.1)
[2024-03-30] MEDS: LEVETIRACETAM SOL (5 ML) 100 MG/ML UDC GT SCH (08:50)
[2024-03-30] MEDS: POTASSIUM CHLORIDE 20 MEQ POWDER PACKET NG SCH (10:59)
[2024-03-31] VITALS (9 sets, daily range): BP systolic 95–162; BP diastolic 53–108; TEMP 99.2–100.3; O2SAT 93–99
[2024-03-31 06:47] LABS: BASOPHILS # (AUTO) 0.1 K/uL (0.0-0.2); BASOPHILS % (AUTO) 0.3 % (0.0-2.0); EOSINOPHILS % (AUTO) 0.1 % (0.0-6.0); HEMATOCRIT 29 % (39-51); LYMPHOCYTES # (AUTO) 0.5 K/uL (0.8-4.8); LYMPHOCYTES % (AUTO) 2.7 % (20.0-44.0); MEAN CORPUSCULAR HEMOGLOBIN 32 PG (26.0-33.0); MEAN CORPUSCULAR HGB CONC 34 g/dl (31.0-36.0); MEAN CORPUSCULAR VOLUME 95 fL (80-96); MONOCYTES # (AUTO) 0.8 K/uL (0.1-1.30); MONOCYTES % (AUTO) 4.8 % (2.0-12.0); NEUTROPHILS # (AUTO) 15.2 K/uL (1.8-8.9); NEUTROPHILS % (AUTO) 92.1 % (43.0-81.0); PLATELET COUNT (AUTO) 263 K/uL (150-450); RED BLOOD CELL COUNT(AUTO) 3.09 MIL/uL (4.5-6.0); RED CELL DISTRIBUTION WIDTH 14.4 % (11.5-15.0); WHITE BLOOD COUNT (AUTO) 16.5 K/uL (4.3-11.0)
[2024-03-31 07:12] LABS: CALCIUM, SERUM 9.1 mg/dL (8.5-10.1); CREATININE 1.4 mg/dL (0.6-1.3); MAGNESIUM 2.3 mg/dL (1.8-2.4); PHOSPHORUS 4.5 mg/dL (2.5-4.9); POTASSIUM 4.2 mmol/L (3.5-5.1)
[2024-03-31] MEDS: METOCLOPRAMIDE HCL 10 MG/2 ML VIAL IV SCH (10:35)
[2024-04-01 00:18] VITALS: BP 137/94; TEMP 99.7; O2SAT 97
[2024-04-01 04:00] VITALS: BP 140/95; TEMP 99.7; O2SAT 99
[2024-04-01 07:57] LABS: BASOPHILS % (AUTO) 0.1 % (0.0-2.0); EOSINOPHILS % (AUTO) 0.1 % (0.0-6.0); HEMATOCRIT 29 % (39-51); HEMOGLOBIN 9.6 g/dL (13.5-17.5); LYMPHOCYTES # (AUTO) 0.7 K/uL (0.8-4.8); LYMPHOCYTES % (AUTO) 4.7 % (20.0-44.0); MEAN CORPUSCULAR HEMOGLOBIN 32 PG (26.0-33.0); MEAN CORPUSCULAR HGB CONC 33 g/dl (31.0-36.0); MEAN CORPUSCULAR VOLUME 97 fL (80-96); MONOCYTES # (AUTO) 0.8 K/uL (0.1-1.30); MONOCYTES % (AUTO) 5.2 % (2.0-12.0); NEUTROPHILS # (AUTO) 12.9 K/uL (1.8-8.9); NEUTROPHILS % (AUTO) 89.9 % (43.0-81.0); PLATELET COUNT (AUTO) 225 K/uL (150-450); RED BLOOD CELL COUNT(AUTO) 3.03 MIL/uL (4.5-6.0); RED CELL DISTRIBUTION WIDTH 14.4 % (11.5-15.0); WHITE BLOOD COUNT (AUTO) 14.3 K/uL (4.3-11.0)
[2024-04-01 08:00] VITALS: BP 132/102; TEMP 98.4; O2SAT 99
[2024-04-01 08:10] LABS: CALCIUM, SERUM 8.8 mg/dL (8.5-10.1); CREATININE 1.4 mg/dL (0.6-1.3); MAGNESIUM 2.5 mg/dL (1.8-2.4); PHOSPHORUS 3.6 mg/dL (2.5-4.9); POTASSIUM 3.7 mmol/L (3.5-5.1)
[2024-04-01] MEDS: AMLODIPINE BESYLATE 5 MG TABLET GT SCH (09:49)
[2024-04-01] MEDS ORDERED: DIATR MEGLU/DIATRIZOATE SODIUM 120 ML BOTTLE (GASTROGRAPHIN) ONE (10:42)
[2024-04-01 12:00] VITALS: BP 130/95; TEMP 98.1; O2SAT 94
[2024-04-01 16:00] VITALS: BP 126/90; TEMP 98.9; O2SAT 95
[2024-04-01 20:00] VITALS: BP 139/99; TEMP 99.3; O2SAT 91
[2024-04-01] MEDS: LEVETIRACETAM (500MG) 500 MG in IV NS 0.9% 100 ML IV SCH (20:03)
[2024-04-02] VITALS (7 sets, daily range): BP systolic 129–160; BP diastolic 99–112; TEMP 99.1–99.8; O2SAT 92–100
[2024-04-02] MEDS: IV D5W 1,000 ML IV PRN (02:49)
[2024-04-02 10:51] LABS: BASOPHILS % (AUTO) 0.1 % (0.0-2.0); EOSINOPHILS % (AUTO) 0.1 % (0.0-6.0); HEMATOCRIT 31 % (39-51); HEMOGLOBIN 10.3 g/dL (13.5-17.5); LYMPHOCYTES # (AUTO) 0.6 K/uL (0.8-4.8); LYMPHOCYTES % (AUTO) 4.4 % (20.0-44.0); MEAN CORPUSCULAR HEMOGLOBIN 33 PG (26.0-33.0); MEAN CORPUSCULAR HGB CONC 34 g/dl (31.0-36.0); MEAN CORPUSCULAR VOLUME 97 fL (80-96); MONOCYTES # (AUTO) 0.8 K/uL (0.1-1.30); NEUTROPHILS # (AUTO) 12.4 K/uL (1.8-8.9); NEUTROPHILS % (AUTO) 89.4 % (43.0-81.0); PLATELET COUNT (AUTO) 222 K/uL (150-450); RED BLOOD CELL COUNT(AUTO) 3.15 MIL/uL (4.5-6.0); RED CELL DISTRIBUTION WIDTH 14.7 % (11.5-15.0); WHITE BLOOD COUNT (AUTO) 13.8 K/uL (4.3-11.0)
[2024-04-02 11:04] LABS: CALCIUM, SERUM 9.5 mg/dL (8.5-10.1); CREATININE 1.5 mg/dL (0.6-1.3); MAGNESIUM 2.6 mg/dL (1.8-2.4); PHOSPHORUS 4.8 mg/dL (2.5-4.9)
[2024-04-02] MEDS: NA PHOS,M-B/NA PHOS,DI-BA 1 EA ENEMA RC PRN (17:44)
[2024-04-03] VITALS: BP 125/98; TEMP 99.3; O2SAT 98
[2024-04-03 04:00] VITALS: BP 142/98; TEMP 99.5; O2SAT 97
[2024-04-03 06:49] LABS: BASOPHILS % (AUTO) 0.1 % (0.0-2.0); EOSINOPHILS # (AUTO) 0.1 K/uL (0.0-0.7); EOSINOPHILS % (AUTO) 0.6 % (0.0-6.0); HEMATOCRIT 29 % (39-51); HEMOGLOBIN 9.5 g/dL (13.5-17.5); LYMPHOCYTES # (AUTO) 0.6 K/uL (0.8-4.8); MEAN CORPUSCULAR HEMOGLOBIN 32 PG (26.0-33.0); MEAN CORPUSCULAR HGB CONC 33 g/dl (31.0-36.0); MEAN CORPUSCULAR VOLUME 97 fL (80-96); MONOCYTES # (AUTO) 0.9 K/uL (0.1-1.30); MONOCYTES % (AUTO) 6.9 % (2.0-12.0); NEUTROPHILS # (AUTO) 10.9 K/uL (1.8-8.9); NEUTROPHILS % (AUTO) 87.4 % (43.0-81.0); PLATELET COUNT (AUTO) 180 K/uL (150-450); RED BLOOD CELL COUNT(AUTO) 2.95 MIL/uL (4.5-6.0); RED CELL DISTRIBUTION WIDTH 14.5 % (11.5-15.0); WHITE BLOOD COUNT (AUTO) 12.5 K/uL (4.3-11.0)
[2024-04-03 07:18] LABS: CALCIUM, SERUM 8.7 mg/dL (8.5-10.1); CREATININE 1.2 mg/dL (0.6-1.3); MAGNESIUM 2.1 mg/dL (1.8-2.4); PHOSPHORUS 4.1 mg/dL (2.5-4.9); POTASSIUM 3.4 mmol/L (3.5-5.1)
[2024-04-03 08:00] VITALS: BP 143/91; TEMP 99.1; O2SAT 97
[2024-04-03] MEDS: POTASSIUM CL. PREMIX PERIPHER. 50 ML IV SCH (10:13)
[2024-04-03 12:00] VITALS: BP 136/91; TEMP 98.6; O2SAT 99
[2024-04-03 16:00] VITALS: BP 134/99; TEMP 98.1; O2SAT 100
[2024-04-03 20:00] VITALS: BP 134/99; TEMP 98.8; O2SAT 100
[2024-04-04] VITALS: BP 134/99; TEMP 99.7; O2SAT 100
[2024-04-04 04:00] VITALS: BP 132/90; TEMP 99.3; O2SAT 98
[2024-04-04 07:20] LABS: CALCIUM, SERUM 8.8 mg/dL (8.5-10.1); CREATININE 1.1 mg/dL (0.6-1.3); POTASSIUM 3.7 mmol/L (3.5-5.1)
[2024-04-04 07:24] LABS: BASOPHILS % (AUTO) 0.2 % (0.0-2.0); EOSINOPHILS # (AUTO) 0.1 K/uL (0.0-0.7); EOSINOPHILS % (AUTO) 0.9 % (0.0-6.0); HEMATOCRIT 33 % (39-51); HEMOGLOBIN 10.6 g/dL (13.5-17.5); LYMPHOCYTES # (AUTO) 0.9 K/uL (0.8-4.8); LYMPHOCYTES % (AUTO) 8.2 % (20.0-44.0); MEAN CORPUSCULAR HEMOGLOBIN 32 PG (26.0-33.0); MEAN CORPUSCULAR HGB CONC 33 g/dl (31.0-36.0); MEAN CORPUSCULAR VOLUME 99 fL (80-96); MONOCYTES # (AUTO) 0.7 K/uL (0.1-1.30); MONOCYTES % (AUTO) 6.1 % (2.0-12.0); NEUTROPHILS % (AUTO) 84.6 % (43.0-81.0); PLATELET COUNT (AUTO) 178 K/uL (150-450); RED BLOOD CELL COUNT(AUTO) 3.29 MIL/uL (4.5-6.0); RED CELL DISTRIBUTION WIDTH 14.5 % (11.5-15.0); WHITE BLOOD COUNT (AUTO) 10.7 K/uL (4.3-11.0)
[2024-04-04 08:00] VITALS: BP 137/88; TEMP 97.9; O2SAT 98
[2024-04-04 12:00] VITALS: BP 131/94; TEMP 98.5; O2SAT 96
[2024-04-04 16:00] VITALS: BP 130/94; TEMP 98.5; O2SAT 96
[2024-04-04 20:00] VITALS: BP 132/97; TEMP 98.4; O2SAT 96
[2024-04-05] VITALS: BP 137/103; TEMP 99.1; O2SAT 98
[2024-04-05 04:00] VITALS: BP 136/96; TEMP 101.3; O2SAT 97
[2024-04-05 06:51] LABS: BASOPHILS % (AUTO) 0.2 % (0.0-2.0); EOSINOPHILS # (AUTO) 0.1 K/uL (0.0-0.7); EOSINOPHILS % (AUTO) 0.5 % (0.0-6.0); HEMATOCRIT 30 % (39-51); HEMOGLOBIN 10.1 g/dL (13.5-17.5); LYMPHOCYTES # (AUTO) 0.5 K/uL (0.8-4.8); LYMPHOCYTES % (AUTO) 4.8 % (20.0-44.0); MEAN CORPUSCULAR HEMOGLOBIN 32 PG (26.0-33.0); MEAN CORPUSCULAR HGB CONC 34 g/dl (31.0-36.0); MEAN CORPUSCULAR VOLUME 96 fL (80-96); MONOCYTES # (AUTO) 0.7 K/uL (0.1-1.30); MONOCYTES % (AUTO) 6.2 % (2.0-12.0); NEUTROPHILS # (AUTO) 9.9 K/uL (1.8-8.9); NEUTROPHILS % (AUTO) 88.3 % (43.0-81.0); PLATELET COUNT (AUTO) 182 K/uL (150-450); RED BLOOD CELL COUNT(AUTO) 3.11 MIL/uL (4.5-6.0); RED CELL DISTRIBUTION WIDTH 14.2 % (11.5-15.0); WHITE BLOOD COUNT (AUTO) 11.1 K/uL (4.3-11.0)
[2024-04-05 07:05] LABS: CALCIUM, SERUM 8.7 mg/dL (8.5-10.1); CREATININE 1.4 mg/dL (0.6-1.3); POTASSIUM 3.6 mmol/L (3.5-5.1)
[2024-04-05 08:00] VITALS: BP 131/94; TEMP 99.3; O2SAT 97
[2024-04-05 12:00] VITALS: BP 136/96; TEMP 99.1; O2SAT 97
[2024-04-05 16:00] VITALS: BP 141/97; TEMP 98.6; O2SAT 98
[2024-04-05 20:00] VITALS: BP 130/90; TEMP 98.4; O2SAT 99
[2024-04-06] VITALS: BP 139/92; TEMP 99.1; O2SAT 98
[2024-04-06 04:00] VITALS: BP 137/96; TEMP 99.3; O2SAT 99
[2024-04-06 08:00] VITALS: BP 133/91; TEMP 98.8; O2SAT 99
[2024-04-06 08:24] LABS: BASOPHILS % (AUTO) 0.2 % (0.0-2.0); EOSINOPHILS # (AUTO) 0.1 K/uL (0.0-0.7); HEMATOCRIT 30 % (39-51); LYMPHOCYTES % (AUTO) 9.1 % (20.0-44.0); MEAN CORPUSCULAR HEMOGLOBIN 32 PG (26.0-33.0); MEAN CORPUSCULAR HGB CONC 34 g/dl (31.0-36.0); MEAN CORPUSCULAR VOLUME 97 fL (80-96); MONOCYTES # (AUTO) 0.6 K/uL (0.1-1.30); MONOCYTES % (AUTO) 5.1 % (2.0-12.0); NEUTROPHILS # (AUTO) 9.3 K/uL (1.8-8.9); NEUTROPHILS % (AUTO) 84.6 % (43.0-81.0); PLATELET COUNT (AUTO) 186 K/uL (150-450); RED BLOOD CELL COUNT(AUTO) 3.09 MIL/uL (4.5-6.0); RED CELL DISTRIBUTION WIDTH 14.1 % (11.5-15.0)
[2024-04-06 09:02] LABS: CALCIUM, SERUM 8.7 mg/dL (8.5-10.1); CREATININE 1.2 mg/dL (0.6-1.3); POTASSIUM 3.6 mmol/L (3.5-5.1)
[2024-04-06 12:00] VITALS: BP 118/91; TEMP 98.4; O2SAT 97
[2024-04-06 16:00] VITALS: BP 120/94; TEMP 99.4; O2SAT 98
[2024-04-06 20:00] VITALS: BP 121/89; TEMP 98.8; O2SAT 97
[2024-04-07] VITALS: BP 157/95; TEMP 99; O2SAT 99
[2024-04-07 04:00] VITALS: BP 131/91; TEMP 98.1; O2SAT 98
[2024-04-07 08:00] VITALS: BP 132/91; TEMP 97.3; O2SAT 98
[2024-04-07 12:00] VITALS: BP 130/95; TEMP 97.5; O2SAT 99
[2024-04-07 16:00] VITALS: BP 120/93; TEMP 97.3; O2SAT 99
[2024-04-07 20:00] VITALS: BP 140/96; TEMP 98.6; O2SAT 95
[2024-04-08] VITALS: BP 134/93; TEMP 98.1; O2SAT 96
[2024-04-08 04:00] VITALS: BP 123/89; TEMP 98.2; O2SAT 99
[2024-04-08 08:00] VITALS: BP 135/94; TEMP 98.4; O2SAT 99
[2024-04-08 09:37] LABS: BASOPHILS % (AUTO) 0.1 % (0.0-2.0); EOSINOPHILS # (AUTO) 0.1 K/uL (0.0-0.7); EOSINOPHILS % (AUTO) 0.8 % (0.0-6.0); HEMATOCRIT 31 % (39-51); HEMOGLOBIN 10.6 g/dL (13.5-17.5); LYMPHOCYTES # (AUTO) 0.7 K/uL (0.8-4.8); LYMPHOCYTES % (AUTO) 6.9 % (20.0-44.0); MEAN CORPUSCULAR HEMOGLOBIN 32 PG (26.0-33.0); MEAN CORPUSCULAR HGB CONC 34 g/dl (31.0-36.0); MEAN CORPUSCULAR VOLUME 96 fL (80-96); MONOCYTES # (AUTO) 0.5 K/uL (0.1-1.30); MONOCYTES % (AUTO) 5.5 % (2.0-12.0); NEUTROPHILS # (AUTO) 8.6 K/uL (1.8-8.9); NEUTROPHILS % (AUTO) 86.7 % (43.0-81.0); PLATELET COUNT (AUTO) 162 K/uL (150-450); RED BLOOD CELL COUNT(AUTO) 3.26 MIL/uL (4.5-6.0); WHITE BLOOD COUNT (AUTO) 9.9 K/uL (4.3-11.0)
[2024-04-08] MEDS: DOCUSATE SODIUM LIQ 100 MG/10 ML UDC GT SCH (09:55)
[2024-04-08 10:10] LABS: ALBUMIN 2.5 g/dL (3.4-5.0); BILIRUBIN,TOTAL 1.1 mg/dL (0.2-1.0); CALCIUM, SERUM 8.5 mg/dL (8.5-10.1); CREATININE 0.9 mg/dL (0.6-1.3); MAGNESIUM 1.9 mg/dL (1.8-2.4); PHOSPHORUS 3.5 mg/dL (2.5-4.9); POTASSIUM 3.1 mmol/L (3.5-5.1); TOTAL PROTEIN, SERUM 6.6 g/dL (6.4-8.2)
[2024-04-08] MEDS: POTASSIUM CL. PREMIX PERIPHER. 50 ML IV SCH (11:42)
[2024-04-08 12:00] VITALS: BP 127/89; TEMP 99; O2SAT 100
[2024-04-08] MEDS ORDERED: FREE WATER VIA TUBE FEEDING GT SCH (12:00)
[2024-04-08 16:00] VITALS: BP_SYST 120; BP_SYST 153; BP_DIAS 85; BP_DIAS 90; TEMP 98.6; TEMP 99.2; O2SAT 94; O2SAT 98
[2024-04-08 20:00] VITALS: BP 135/94; TEMP 100.2; O2SAT 98
[2024-04-09] VITALS: BP 119/85; TEMP 98.6
[2024-04-09 04:00] VITALS: BP 113/85; TEMP 98.4; O2SAT 99
[2024-04-09 08:00] VITALS: BP 129/89; TEMP 98.2; O2SAT 96
[2024-04-09 12:00] VITALS: BP 126/88; TEMP 98.1; O2SAT 96
[2024-04-09 16:00] VITALS: BP_SYST 122; BP_SYST 126; BP_DIAS 88; BP_DIAS 92; TEMP 98.1; TEMP 98.2; O2SAT 96
[2024-04-09 20:00] VITALS: BP 133/96; TEMP 98.8; O2SAT 95
[2024-04-10] VITALS: BP 130/85; TEMP 98.4; O2SAT 98
[2024-04-10 04:00] VITALS: BP 122/95; TEMP 98; O2SAT 99
[2024-04-10 08:00] VITALS: BP 127/91; TEMP 98.1; O2SAT 98
[2024-04-10 12:00] VITALS: BP 125/98; TEMP 97.7; O2SAT 98
[2024-04-10 15:43] LABS: ABG BASE EXCESS 0.1 mmol/L (-2.0-3.0); ABG OXYGEN SATURATION 83.2 % (94.0-98.0); ABG PCO2 33.7 mmHg (35.0-48.0); ABG PH 7.461 (7.350-7.450); ABG PO2 48.1 mmHg (83.0-108.0); COHb 0.3 % (0.5-1.5); MetHb 0.1 % (0.0-1.5); O2Hb 82.9 % (94.0-97.0); SITE, ABG LEFT RADIAL; VT, ABG 475 mL
[2024-04-10 16:00] VITALS: BP 125/86; TEMP 97.9; O2SAT 98
[2024-04-10 20:00] VITALS: BP 130/90; TEMP 98.3; O2SAT 98
[2024-04-11] VITALS: BP 132/92; TEMP 98.3; O2SAT 98
[2024-04-11 04:00] VITALS: BP 139/99; TEMP 97.9; O2SAT 98
[2024-04-11 07:06] LABS: BASOPHILS % (AUTO) 0.2 % (0.0-2.0); EOSINOPHILS # (AUTO) 0.1 K/uL (0.0-0.7); EOSINOPHILS % (AUTO) 0.5 % (0.0-6.0); HEMATOCRIT 29 % (39-51); HEMOGLOBIN 10.1 g/dL (13.5-17.5); LYMPHOCYTES # (AUTO) 0.7 K/uL (0.8-4.8); LYMPHOCYTES % (AUTO) 6.3 % (20.0-44.0); MEAN CORPUSCULAR HEMOGLOBIN 33 PG (26.0-33.0); MEAN CORPUSCULAR HGB CONC 34 g/dl (31.0-36.0); MEAN CORPUSCULAR VOLUME 96 fL (80-96); MONOCYTES # (AUTO) 0.6 K/uL (0.1-1.30); MONOCYTES % (AUTO) 5.7 % (2.0-12.0); NEUTROPHILS # (AUTO) 9.5 K/uL (1.8-8.9); NEUTROPHILS % (AUTO) 87.3 % (43.0-81.0); PLATELET COUNT (AUTO) 193 K/uL (150-450); RED BLOOD CELL COUNT(AUTO) 3.06 MIL/uL (4.5-6.0); RED CELL DISTRIBUTION WIDTH 13.9 % (11.5-15.0); WHITE BLOOD COUNT (AUTO) 10.8 K/uL (4.3-11.0)
[2024-04-11 07:19] LABS: CALCIUM, SERUM 8.2 mg/dL (8.5-10.1); CREATININE 0.9 mg/dL (0.6-1.3); MAGNESIUM 1.8 mg/dL (1.8-2.4); PHOSPHORUS 3.5 mg/dL (2.5-4.9); POTASSIUM 3.5 mmol/L (3.5-5.1)
[2024-04-11 08:00] VITALS: BP 128/71; TEMP 97.3; O2SAT 98
[2024-04-11 12:00] VITALS: BP 130/81; TEMP 97.5; O2SAT 97
[2024-04-11 16:00] VITALS: BP 147/87; TEMP 97.3; O2SAT 100
[2024-04-11 20:00] VITALS: BP 130/91; TEMP 98.6; O2SAT 100
[2024-04-11] MEDS: IV D5/ 0.9% NACL 1,000 ML IV PRN (21:52)
[2024-04-12] VITALS (8 sets, daily range): BP systolic 141–149; BP diastolic 48–98; TEMP 98.1–99; O2SAT 95–100
[2024-04-12] MEDS ORDERED: TPN/PPN PER PHARMACY IV PRN (09:00)
[2024-04-12] MEDS ORDERED: PPN BAG #1 IV SCH (14:00)
[2024-04-12] MEDS ORDERED: DEXTROSE 50%-WATER 50 ML DISP.SYRIN IV PRN (14:00)
[2024-04-12] MEDS: PPN BAG #1 IV SCH (14:19)
[2024-04-12] MEDS: BLOOD SUGAR DIAGNOSTIC 1 EACH STRIP IN SCH (17:16)
[2024-04-12] MEDS: POTASSIUM CL. PREMIX PERIPHER. 50 ML IV SCH (20:24)
[2024-04-12] MEDS: Magnesium 1GM/D5W 100ML PREMIX 100 ML IV SCH (21:50)
[2024-04-13] VITALS: BP 133/91; TEMP 97.9; O2SAT 100
[2024-04-13 04:00] VITALS: BP 138/89; TEMP 98.6; O2SAT 98
[2024-04-13 07:26] LABS: CALCIUM, SERUM 8.8 mg/dL (8.5-10.1); CREATININE 0.7 mg/dL (0.6-1.3); POTASSIUM 2.8 mmol/L (3.5-5.1)
[2024-04-13 08:00] VITALS: BP 144/101; TEMP 98.1; O2SAT 99
[2024-04-13 08:12] LABS: CHOLESTEROL 156 mg/dL (<200); HDL CHOLESTEROL 40 mg/dL (40-60); LDL 98 mg/dL (0-99); TRIGLYCERIDES 122 mg/dL (30-150)
[2024-04-13] MEDS: PPN BAG #2 IV SCH (10:04)
[2024-04-13] MEDS ORDERED: DIATR MEGLU/DIATRIZOATE SODIUM 30 ML BOTTLE (GASTROGRAPHIN) ONE (10:57)
[2024-04-13] MEDS: INSULIN REGULAR, HUMAN 100 UNIT/ML 3 ML VIAL SQ PRN (11:54)
[2024-04-13 12:00] VITALS: BP 135/100; TEMP 99; O2SAT 98
[2024-04-13 16:00] VITALS: BP 155/103; TEMP 100.4; O2SAT 98
[2024-04-13] MEDS: POTASSIUM CL. PREMIX PERIPHER. 50 ML IV SCH (19:47)
[2024-04-13 20:00] VITALS: BP 131/95; TEMP 97.8; O2SAT 99
[2024-04-13] MEDS: HEPARIN SODIUM, PORCINE 5000 UNITS/1 ML VIAL SQ SCH (20:58)
[2024-04-14] VITALS: BP 133/99; TEMP 98.8; O2SAT 98
[2024-04-14 04:00] VITALS: BP 145/91; TEMP 98.2; O2SAT 100
[2024-04-14] MEDS: PPN IV SCH (06:10)
[2024-04-14 08:00] VITALS: BP_SYST 132; BP_SYST 138; BP_DIAS 74; BP_DIAS 97; TEMP 98.6; TEMP 99.1; O2SAT 94; O2SAT 99
[2024-04-14 08:18] LABS: BASOPHILS % (AUTO) 0.2 % (0.0-2.0); EOSINOPHILS # (AUTO) 0.1 K/uL (0.0-0.7); EOSINOPHILS % (AUTO) 0.5 % (0.0-6.0); HEMATOCRIT 29 % (39-51); HEMOGLOBIN 9.9 g/dL (13.5-17.5); LYMPHOCYTES # (AUTO) 0.7 K/uL (0.8-4.8); LYMPHOCYTES % (AUTO) 6.3 % (20.0-44.0); MEAN CORPUSCULAR HEMOGLOBIN 32 PG (26.0-33.0); MEAN CORPUSCULAR HGB CONC 34 g/dl (31.0-36.0); MEAN CORPUSCULAR VOLUME 96 fL (80-96); MONOCYTES # (AUTO) 0.7 K/uL (0.1-1.30); MONOCYTES % (AUTO) 6.2 % (2.0-12.0); NEUTROPHILS % (AUTO) 86.8 % (43.0-81.0); PLATELET COUNT (AUTO) 190 K/uL (150-450); RED BLOOD CELL COUNT(AUTO) 3.06 MIL/uL (4.5-6.0); RED CELL DISTRIBUTION WIDTH 13.9 % (11.5-15.0); WHITE BLOOD COUNT (AUTO) 11.5 K/uL (4.3-11.0)
[2024-04-14 08:40] LABS: CALCIUM, SERUM 8.5 mg/dL (8.5-10.1); CREATININE 0.7 mg/dL (0.6-1.3); MAGNESIUM 1.8 mg/dL (1.8-2.4); PHOSPHORUS 3.2 mg/dL (2.5-4.9); POTASSIUM 3.3 mmol/L (3.5-5.1)
[2024-04-14] MEDS: POTASSIUM CL. PREMIX PERIPHER. 50 ML IV SCH (10:24)
[2024-04-14 12:00] VITALS: BP 146/103; TEMP 98.8; O2SAT 97
[2024-04-14] MEDS: FAT EMULSION 20% 500 ML in PREMIX 1 EA IV SCH (13:30)
[2024-04-14] MEDS: Magnesium 1GM/D5W 100ML PREMIX 100 ML IV SCH (15:29)
[2024-04-14 16:00] VITALS: BP 150/92; TEMP 98.1; O2SAT 98
[2024-04-14 20:00] VITALS: BP 145/99; TEMP 99.5; O2SAT 97
[2024-04-14] MEDS ORDERED: METRONIDAZOLE 500MG/ NS 100ML 100 ML IV ONE (21:35)
[2024-04-14] MEDS: METRONIDAZOLE 500MG/ NS 100ML 500 MG in PREMIX 1 EA IV SCH (21:42)
[2024-04-15] VITALS: BP 139/96; TEMP 98.2; O2SAT 100
[2024-04-15] MEDS: PPN IV SCH ×2 (02:50→23:56)
[2024-04-15 04:00] VITALS: BP 147/97; TEMP 99; O2SAT 99
[2024-04-15] MEDS ORDERED: METRONIDAZOLE 500MG/ NS 100ML 100 ML IV ONE (04:33)
[2024-04-15 08:00] VITALS: BP 140/80; TEMP 98.6; O2SAT 99
[2024-04-15 08:06] LABS: CALCIUM, SERUM 8.2 mg/dL (8.5-10.1); CREATININE 0.7 mg/dL (0.6-1.3); MAGNESIUM 1.8 mg/dL (1.8-2.4); PHOSPHORUS 3.1 mg/dL (2.5-4.9)
[2024-04-15] MEDS: POTASSIUM CL. PREMIX PERIPHER. 50 ML IV SCH ×2 (10:21→22:53)
[2024-04-15 12:00] VITALS: BP 126/90; TEMP 98.4; O2SAT 99
[2024-04-15 16:00] VITALS: BP 130/90; TEMP 99.3; O2SAT 99
[2024-04-15 20:00] VITALS: BP 138/92; TEMP 99.1; O2SAT 95
[2024-04-15] MEDS: Magnesium 1GM/D5W 100ML PREMIX 100 ML IV SCH (21:54)
[2024-04-16] VITALS: BP 120/85; TEMP 99.5; O2SAT 99
[2024-04-16 04:00] VITALS: BP 149/95; TEMP 98.4; O2SAT 99
[2024-04-16 08:00] VITALS: BP 144/95; TEMP 99; O2SAT 99
[2024-04-16 08:02] LABS: CALCIUM, SERUM 8.3 mg/dL (8.5-10.1); CREATININE 0.7 mg/dL (0.6-1.3); MAGNESIUM 1.7 mg/dL (1.8-2.4); PHOSPHORUS 3.4 mg/dL (2.5-4.9); POTASSIUM 3.2 mmol/L (3.5-5.1)
[2024-04-16 10:53] LABS: BASOPHILS % (AUTO) 0.2 % (0.0-2.0); EOSINOPHILS % (AUTO) 0.6 % (0.0-6.0); HEMATOCRIT 28 % (39-51); HEMOGLOBIN 9.6 g/dL (13.5-17.5); LYMPHOCYTES # (AUTO) 0.9 K/uL (0.8-4.8); MEAN CORPUSCULAR HEMOGLOBIN 33 PG (26.0-33.0); MEAN CORPUSCULAR HGB CONC 34 g/dl (31.0-36.0); MEAN CORPUSCULAR VOLUME 97 fL (80-96); MONOCYTES # (AUTO) 0.6 K/uL (0.1-1.30); NEUTROPHILS % (AUTO) 81.2 % (43.0-81.0); PLATELET COUNT (AUTO) 205 K/uL (150-450); RED BLOOD CELL COUNT(AUTO) 2.92 MIL/uL (4.5-6.0); WHITE BLOOD COUNT (AUTO) 8.6 K/uL (4.3-11.0)
[2024-04-16 12:00] VITALS: BP 137/87; TEMP 99.1; O2SAT 99
[2024-04-16] MEDS: Magnesium 1GM/D5W 100ML PREMIX 100 ML IV SCH (12:48)
[2024-04-16] MEDS ORDERED: POLYVINYL ALCOHOL 15 ML BOTTLE EACHEYE PRN (14:30)
[2024-04-16] MEDS: POTASSIUM CL. PREMIX PERIPHER. 50 ML IV SCH (15:43)
[2024-04-16 16:00] VITALS: BP 155/105; TEMP 98.8; O2SAT 96
[2024-04-16] MEDS: TPN BAG #6 IV SCH (19:54)
[2024-04-16 20:00] VITALS: BP 140/96; TEMP 98; O2SAT 98
[2024-04-17] VITALS: BP 143/107; TEMP 97.9; O2SAT 98
[2024-04-17 04:00] VITALS: BP 152/106; TEMP 98.4; O2SAT 98
[2024-04-17 07:06] LABS: BASOPHILS % (AUTO) 0.2 % (0.0-2.0); EOSINOPHILS # (AUTO) 0.1 K/uL (0.0-0.7); EOSINOPHILS % (AUTO) 0.6 % (0.0-6.0); HEMATOCRIT 30 % (39-51); HEMOGLOBIN 10.2 g/dL (13.5-17.5); LYMPHOCYTES # (AUTO) 1.1 K/uL (0.8-4.8); LYMPHOCYTES % (AUTO) 11.1 % (20.0-44.0); MEAN CORPUSCULAR HEMOGLOBIN 33 PG (26.0-33.0); MEAN CORPUSCULAR HGB CONC 34 g/dl (31.0-36.0); MEAN CORPUSCULAR VOLUME 94 fL (80-96); MONOCYTES # (AUTO) 0.6 K/uL (0.1-1.30); MONOCYTES % (AUTO) 6.1 % (2.0-12.0); NEUTROPHILS # (AUTO) 7.8 K/uL (1.8-8.9); PLATELET COUNT (AUTO) 206 K/uL (150-450); RED BLOOD CELL COUNT(AUTO) 3.15 MIL/uL (4.5-6.0); WHITE BLOOD COUNT (AUTO) 9.5 K/uL (4.3-11.0)
[2024-04-17 07:18] LABS: CALCIUM, SERUM 8.6 mg/dL (8.5-10.1); CREATININE 0.7 mg/dL (0.6-1.3); PHOSPHORUS 3.3 mg/dL (2.5-4.9); POTASSIUM 3.2 mmol/L (3.5-5.1)
[2024-04-17 08:00] VITALS: BP 150/110; TEMP 98.2; O2SAT 99
[2024-04-17 12:00] VITALS: BP 158/107; TEMP 97.8; O2SAT 100
[2024-04-17] MEDS: POTASSIUM CL. PREMIX PERIPHER. 50 ML IV SCH (12:33)
[2024-04-17] MEDS: PPN IV SCH (15:58)
[2024-04-17 16:00] VITALS: BP 150/100; TEMP 98.2; O2SAT 100
[2024-04-17 20:00] VITALS: BP 146/101; TEMP 100; O2SAT 100
[2024-04-18] VITALS: BP 141/102; TEMP 98.8; O2SAT 100
[2024-04-18 04:00] VITALS: BP 154/98; TEMP 98.6
[2024-04-18 07:12] LABS: CALCIUM, SERUM 9.1 mg/dL (8.5-10.1); CREATININE 0.7 mg/dL (0.6-1.3); MAGNESIUM 1.7 mg/dL (1.8-2.4); PHOSPHORUS 3.5 mg/dL (2.5-4.9); POTASSIUM 3.3 mmol/L (3.5-5.1)
[2024-04-18 08:00] VITALS: BP 149/96; TEMP 98.1; O2SAT 100
[2024-04-18] MEDS: Magnesium 1GM/D5W 100ML PREMIX 100 ML IV SCH (08:39)
[2024-04-18] MEDS: POTASSIUM CL. PREMIX PERIPHER. 50 ML IV SCH (10:19)
[2024-04-18 10:22] VITALS: BP 149/96; TEMP 98.1; O2SAT 100
[2024-04-18] MEDS: PPN BAG #8 IV SCH (11:21)
[2024-04-18 12:00] VITALS: BP 141/94; TEMP 98.6; O2SAT 100
[2024-04-18 16:00] VITALS: BP 148/102; TEMP 98.1; O2SAT 99
[2024-04-18] MEDS ORDERED: POTASSIUM CL. PREMIX PERIPHER. 50 ML IV SCH (21:00)
[2024-04-19] MEDS ORDERED: PPN BAG #9 IV SCH (07:58)
== END 2024-04-18 20:15 | DRG 4 ==
LOC: ER 22:12 → TELE-TD 03-15 02:01 → ICU 03-15 12:20 → TELE-TD 03-30 18:17 → TELE1 04-02 09:35
PROVIDERS: ADMIT Nurse Practitioner Acute Care; ATTEND Internal Medicine
PROC: 5A1955Z Respiratory Ventilation, Greater than 96 Consecutive Hours (ICD-10-PCS; principal; 2024-03-16)
PROC: 0BH18EZ Insertion of Endotracheal Airway into Trachea, Via Natural or Artificial Opening Endoscopic (ICD-10-PCS; 2024-03-16)
PROC: 009U3ZX Drainage of Spinal Canal, Percutaneous Approach, Diagnostic (ICD-10-PCS; 2024-03-20)
PROC: 0BJ08ZZ Inspection of Tracheobronchial Tree, Via Natural or Artificial Opening Endoscopic (ICD-10-PCS; 2024-03-28)
PROC: 0B113F4 Bypass Trachea to Cutaneous with Tracheostomy Device, Percutaneous Approach (ICD-10-PCS; 2024-03-28)
PROC: 0DH63UZ Insertion of Feeding Device into Stomach, Percutaneous Approach (ICD-10-PCS; 2024-03-29)
DX: A41.9 Sepsis, unspecified organism (principal); A92.31 West Nile virus infection with encephalitis; J69.0 Pneumonitis due to inhalation of food and vomit; G04.90 Encephalitis and encephalomyelitis, unspecified; G92.8 Other toxic encephalopathy; I21.A1 Myocardial infarction type 2; J96.01 Acute respiratory failure with hypoxia; J96.02 Acute respiratory failure with hypercapnia; N17.0 Acute kidney failure with tubular necrosis; E44.1 Mild protein-calorie malnutrition; A87.9 Viral meningitis, unspecified; D68.59 Other primary thrombophilia; N39.0 Urinary tract infection, site not specified; M62.82 Rhabdomyolysis; I16.9 Hypertensive crisis, unspecified; K56.7 Ileus, unspecified; E87.0 Hyperosmolality and hypernatremia; Z20.822 Contact with and (suspected) exposure to COVID-19; D75.1 Secondary polycythemia; K29.70 Gastritis, unspecified, without bleeding; N18.9 Chronic kidney disease, unspecified; I12.9 Hypertensive chronic kidney disease with stage 1 through stage 4 chronic kidney disease, or unspecified chronic kidney disease; E88.09 Other disorders of plasma-protein metabolism, not elsewhere classified; E66.01 Morbid (severe) obesity due to excess calories; Z68.31 Body mass index [BMI] 31.0-31.9, adult; E78.5 Hyperlipidemia, unspecified; E86.9 Volume depletion, unspecified; E86.0 Dehydration; Z87.828 Personal history of other (healed) physical injury and trauma; R13.10 Dysphagia, unspecified; M89.8X9 Other specified disorders of bone, unspecified site; F41.9 Anxiety disorder, unspecified; E87.6 Hypokalemia; R65.20 Severe sepsis without septic shock; R74.01 Elevation of levels of liver transaminase levels
CPT/HCPCS: 31720; 36415; 36600; 43246; 70450-TC; 71045-TC; 71250-TC; 74018; 74250-TC; 76700-TC; 76705-TC; 80048-TC; 80053-TC; 80061-TC; 80076-TC; 80202-TC; 81001; 82140-TC; 82550-TC; 82553; 82570-TC; 82607-TC; 82803-TC; 82962-TC; 83605-TC; 83735-TC; 83921; 83970; 84100-TC; 84155; 84165; 84300-TC; 84425; 84443-TC; 84478-TC; 84484-TC; 85025-TC; 85730-TC; 86225; 86235; 86592; 86788; 86789; 87040-TC; 87081-TC; 87086-TC; 87102-TC; 87806; 87899; 88108-TC; 88305-TC; 89051-TC; 93307-TC; 94002-TC; 94003-TC; 94640-TC; 94760-TC; 94762-TC; 94799-TC; 95819-TC; 97110-TC; 97112-TC; 97530-TC; 97535-TC; 99082-TC; A4216; A4217; A4223; A4623; A4624; A6403; A7526; A9563; C1769; G0378; J0133; J0330; J0360; J0692; J1644; J1815; J1953; J2060; J2185; J2250; J2270; J2470; J2543; J2704; J2765; J3010; J3370; J3475; J3480; J3490; J7030; J7040; J7042; J7050; J7060; J7070; Q9963

== ENCOUNTER 2024-04-18 14:53 | Inpatient (IN) | payer BC, MEDICAID ==
[~2024-04-18] VITALS: Ht 172.7 cm; Wt 88.6 kg
[2024-04-18] MEDS: FAT EMULSION 20% 500 ML in PREMIX 1 EA IV SCH (20:57)
[2024-04-18] MEDS ORDERED: NITROGLYCERIN PACKET 1 GM PACKET TOP PRN (20:57)
[2024-04-18] MEDS ORDERED: POLYVINYL ALCOHOL 15 ML BOTTLE EACHEYE PRN (20:57)
[2024-04-18] MEDS ORDERED: METOCLOPRAMIDE HCL 10 MG/2 ML VIAL IV SCH (20:57)
[2024-04-18] MEDS: PPN BAG #8 IV SCH (20:57)
[2024-04-18] MEDS ORDERED: DEXTROSE 50%-WATER 50 ML DISP.SYRIN IV PRN (20:57)
[2024-04-18] MEDS ORDERED: LEVETIRACETAM SOL (5 ML) 100 MG/ML UDC GT SCH (20:57)
[2024-04-18] MEDS: HYDROGEN PEROXIDE 480 ML BOTTLE TP SCH (21:00)
[2024-04-18] MEDS: HEPARIN SODIUM, PORCINE 5000 UNITS/1 ML VIAL SQ SCH (21:00)
[2024-04-18] MEDS: METRONIDAZOLE 500MG/ NS 100ML 500 MG in PREMIX 1 EA IV SCH (21:00)
[2024-04-18] MEDS ORDERED: HYDROGEN PEROXIDE 480 ML BOTTLE TP PRN (21:00)
[2024-04-18] MEDS ORDERED: LORAZEPAM 1 MG TABLET GT PRN (21:00)
[2024-04-18] MEDS: POTASSIUM CL. PREMIX PERIPHER. 50 ML IV SCH (21:03)
[2024-04-18] MEDS ORDERED: POLYVINYL ALCOHOL 15 ML BOTTLE EACHEYE SCH (21:07)
[2024-04-18] MEDS: POLYVINYL ALCOHOL 15 ML BOTTLE EACHEYE SCH (22:00)
[2024-04-18 23:07] VITALS: O2SAT 99
[2024-04-18] MEDS: IPRATROPIUM NEB FS 0.5 MG/2.5 ML AMPUL.NEB NEB SCH (23:07)
[2024-04-18] MEDS: ALBUTEROL HALF STRENGTH 1.25 MG/3 ML VIAL.NEB NEB SCH (23:07)
[2024-04-18] MEDS: LEVETIRACETAM (500MG) 500 MG in IV NS 0.9% 100 ML IV SCH (23:17)
[2024-04-18] MEDS: BLOOD SUGAR DIAGNOSTIC 1 EACH STRIP IN SCH (23:58)
[2024-04-18] MEDS: INSULIN REGULAR, HUMAN 100 UNIT/ML 3 ML VIAL SQ PRN (23:58)
[2024-04-19] VITALS (8 sets, daily range): BP systolic 118–146; BP diastolic 88–100; TEMP 98–99.3; O2SAT 97–100
[2024-04-19] MEDS: METOCLOPRAMIDE HCL 10 MG/2 ML VIAL IV SCH
[2024-04-19] MEDS: PANTOPRAZOLE 40 MG/PACK PACK GT SCH (05:57)
[2024-04-19 07:42] LABS: CALCIUM, SERUM 8.6 mg/dL (8.5-10.1); CREATININE 0.8 mg/dL (0.6-1.3); PHOSPHORUS 3.3 mg/dL (2.5-4.9); POTASSIUM 3.2 mmol/L (3.5-5.1)
[2024-04-19] MEDS: PPN BAG #9 IV SCH (08:27)
[2024-04-19] MEDS: Z GUARD REMEDY 4 OZ OINT TP SCH ×2 (09:00)
[2024-04-19] MEDS: PANTOPRAZOLE 40 MG VIAL IV SCH (09:11)
[2024-04-19] MEDS: DOCUSATE SODIUM LIQ 100 MG/10 ML UDC GT SCH (10:09)
[2024-04-19] MEDS: AMLODIPINE BESYLATE 5 MG TABLET GT SCH (10:10)
[2024-04-19] MEDS: TUBERCULIN,PURIF.PROT.DERIV. 5 TU/0.1 ML VIAL ID SCH (10:14)
[2024-04-19] MEDS: POTASSIUM CL. PREMIX PERIPHER. 50 ML IV SCH (11:29)
[2024-04-19] MEDS: Magnesium 1GM/D5W 100ML PREMIX 100 ML IV SCH (21:17)
[2024-04-20] VITALS (10 sets, daily range): BP systolic 107–163; BP diastolic 72–100; TEMP 99–101; O2SAT 96–100
[2024-04-20] MEDS: ACETAMINOPHEN 650 MG/20 ML UDC- SA PATIENTS-PAIN ONLY GT PRN (01:08)
[2024-04-20] MEDS: PPN BAG #10 IV SCH (04:22)
[2024-04-20] MEDS: hydrALAZINE HCL 10 MG TABLET GT PRN (06:31)
[2024-04-20] MEDS: ACETAMINOPHEN 650 MG/20 ML UDC- SA PATIENTS-FEVER ONLY GT PRN (06:32)
[2024-04-20 07:56] LABS: CALCIUM, SERUM 8.6 mg/dL (8.5-10.1); CREATININE 0.8 mg/dL (0.6-1.3); MAGNESIUM 1.7 mg/dL (1.8-2.4); PHOSPHORUS 3.4 mg/dL (2.5-4.9); POTASSIUM 3.3 mmol/L (3.5-5.1)
[2024-04-20 09:24] LABS: ABG BASE EXCESS -1.2 mmol/L (-2.0-3.0); ABG OXYGEN SATURATION 97.1 % (94.0-98.0); ABG PCO2 28.9 mmHg (35.0-48.0); ABG PH 7.486 (7.350-7.450); ABG PO2 95.9 mmHg (83.0-108.0); ABG TOTAL HEMOGLOBIN 11.5 G/dL (13.5-17.5); COHb 0.3 % (0.5-1.5); MetHb 0.2 % (0.0-1.5); O2Hb 96.6 % (94.0-97.0); PEEP,BG 5 cm H2O; SITE, ABG LEFT RADIAL; VT, ABG 475 mL
[2024-04-20] MEDS: POTASSIUM CL. PREMIX PERIPHER. 50 ML IV SCH (12:27)
[2024-04-20] MEDS ORDERED: Magnesium 1GM/D5W 100ML PREMIX 100 ML IV SCH (14:00)
[2024-04-20] MEDS: FAT EMULSION 20% 500 ML in PREMIX 1 EA IV SCH (14:38)
[2024-04-20] MEDS: CEFEPIME 1 GM in IV D5W 50 ML IV SCH (15:28)
[2024-04-20] MEDS: VANCOMYCIN 1.5 GM in IV D5W 500 ML IV ONE (16:37)
[2024-04-20] MEDS: Magnesium 1GM/D5W 100ML PREMIX 100 ML IV SCH ×2 (18:13→20:00)
[2024-04-20] MEDS: JEVITY 1.2 CAL 1,000 ML BOTTLE GT PRN (18:56)
[2024-04-20] MEDS ORDERED: CEFEPIME 1 GM VIAL IM SCH (21:00)
[2024-04-20] MEDS: VANCOMYCIN 1 GM in IV D5W 250ml IV SCH (23:16)
[2024-04-21] VITALS (9 sets, daily range): BP systolic 121–168; BP diastolic 82–101; TEMP 97.9–101.3; O2SAT 96–100
[2024-04-21] MEDS: PPN BAG #11 IV SCH (00:59)
[2024-04-21] MEDS: ONDANSETRON HCL/PF 4 MG/2 ML VIAL IVP PRN (03:51)
[2024-04-21 07:39] LABS: CALCIUM, SERUM 8.1 mg/dL (8.5-10.1); CREATININE 0.6 mg/dL (0.6-1.3); MAGNESIUM 2.2 mg/dL (1.8-2.4); PHOSPHORUS 2.6 mg/dL (2.5-4.9); POTASSIUM 4.2 mmol/L (3.5-5.1)
[2024-04-21] MEDS: VANCOMYCIN 1 GM in IV D5W 250ml IV SCH (18:52)
[2024-04-22] VITALS (9 sets, daily range): BP systolic 110–140; BP diastolic 74–93; TEMP 97–99.9; O2SAT 98–100
[2024-04-22 07:30] LABS: CREATININE 0.7 mg/dL (0.6-1.3); MAGNESIUM 1.8 mg/dL (1.8-2.4); PHOSPHORUS 2.5 mg/dL (2.5-4.9)
[2024-04-22 07:37] LABS: POTASSIUM 2.7 mmol/L (3.5-5.1)
[2024-04-22] MEDS: POTASSIUM CL. PREMIX PERIPHER. 50 ML IV SCH ×2 (08:35→15:00)
[2024-04-22] MEDS: PPN BAG #12 IV SCH (16:13)
[2024-04-22 17:47] LABS: CALCIUM, SERUM 8.4 mg/dL (8.5-10.1); CREATININE 0.6 mg/dL (0.6-1.3)
[2024-04-23] VITALS (8 sets, daily range): BP systolic 130–134; BP diastolic 84–90; TEMP 97.5–98.8; O2SAT 98–100
[2024-04-23 08:37] LABS: CALCIUM, SERUM 8.1 mg/dL (8.5-10.1); CREATININE 0.6 mg/dL (0.6-1.3); MAGNESIUM 1.8 mg/dL (1.8-2.4); PHOSPHORUS 2.1 mg/dL (2.5-4.9); POTASSIUM 2.9 mmol/L (3.5-5.1)
[2024-04-23 10:47] LABS: ABG BASE EXCESS -2.7 mmol/L (-2.0-3.0); ABG OXYGEN SATURATION 97.1 % (94.0-98.0); ABG PCO2 40.1 mmHg (35.0-48.0); ABG PH 7.366 (7.350-7.450); ABG PO2 102.3 mmHg (83.0-108.0); ABG TOTAL HEMOGLOBIN 10.6 G/dL (13.5-17.5); COHb 0.3 % (0.5-1.5); O2Hb 96.8 % (94.0-97.0); PEEP,BG 5 cm H2O; SITE, ABG RIGHT RADIAL
[2024-04-23] MEDS: POTASSIUM CL. PREMIX PERIPHER. 50 ML IV SCH ×2 (11:00→21:00)
[2024-04-23] MEDS: POTASSIUM PHOSPHATE MM 7.5 MMOL in IV NS 0.9% 100 ML IV SCH (15:00)
[2024-04-24] VITALS (8 sets, daily range): BP systolic 127–160; BP diastolic 84–92; TEMP 97.8–99; O2SAT 99–100
[2024-04-24 07:44] LABS: CALCIUM, SERUM 8.5 mg/dL (8.5-10.1); CREATININE 0.6 mg/dL (0.6-1.3); MAGNESIUM 1.8 mg/dL (1.8-2.4); PHOSPHORUS 2.5 mg/dL (2.5-4.9); POTASSIUM 3.1 mmol/L (3.5-5.1)
[2024-04-24] MEDS: PPN IV SCH (08:25)
[2024-04-24] MEDS: POTASSIUM PHOSPHATE MM 7.5 MMOL in IV NS 0.9% 100 ML IV SCH (10:50)
[2024-04-24] MEDS: POTASSIUM CL. PREMIX PERIPHER. 50 ML IV SCH (13:01)
[2024-04-24] MEDS: Magnesium 1GM/D5W 100ML PREMIX 100 ML IV SCH (21:00)
[2024-04-25] VITALS (15 sets, daily range): BP systolic 119–161; BP diastolic 82–92; TEMP 98–98.8; O2SAT 96–100
[2024-04-25] MEDS: JEVITY 1.2 CAL 1,000 ML BOTTLE GT PRN (05:03)
[2024-04-25 07:16] LABS: BASOPHILS % (AUTO) 0.2 % (0.0-2.0); EOSINOPHILS # (AUTO) 0.1 K/uL (0.0-0.7); EOSINOPHILS % (AUTO) 0.7 % (0.0-6.0); HEMATOCRIT 26 % (39-51); HEMOGLOBIN 8.9 g/dL (13.5-17.5); LYMPHOCYTES # (AUTO) 1.1 K/uL (0.8-4.8); LYMPHOCYTES % (AUTO) 12.5 % (20.0-44.0); MEAN CORPUSCULAR HEMOGLOBIN 33 PG (26.0-33.0); MEAN CORPUSCULAR HGB CONC 35 g/dl (31.0-36.0); MEAN CORPUSCULAR VOLUME 94 fL (80-96); MONOCYTES # (AUTO) 0.6 K/uL (0.1-1.30); MONOCYTES % (AUTO) 7.1 % (2.0-12.0); NEUTROPHILS % (AUTO) 79.5 % (43.0-81.0); PLATELET COUNT (AUTO) 155 K/uL (150-450); RED BLOOD CELL COUNT(AUTO) 2.74 MIL/uL (4.5-6.0); RED CELL DISTRIBUTION WIDTH 14.5 % (11.5-15.0); WHITE BLOOD COUNT (AUTO) 8.8 K/uL (4.3-11.0)
[2024-04-25 07:47] LABS: CALCIUM, SERUM 8.3 mg/dL (8.5-10.1); CREATININE 0.6 mg/dL (0.6-1.3); MAGNESIUM 1.8 mg/dL (1.8-2.4); PHOSPHORUS 2.3 mg/dL (2.5-4.9); POTASSIUM 3.3 mmol/L (3.5-5.1)
[2024-04-25 10:02] LABS: ABG BASE EXCESS -1.2 mmol/L (-2.0-3.0); ABG OXYGEN SATURATION 95.3 % (94.0-98.0); ABG PCO2 36.2 mmHg (35.0-48.0); ABG PO2 82.9 mmHg (83.0-108.0); ABG TOTAL HEMOGLOBIN 10.1 G/dL (13.5-17.5); COHb 0.3 % (0.5-1.5); MetHb 0.3 % (0.0-1.5); O2Hb 94.7 % (94.0-97.0); SITE, ABG LEFT RADIAL
[2024-04-25] MEDS: METOCLOPRAMIDE HCL 10 MG/10 ML UDC GT SCH (12:00)
[2024-04-25] MEDS: LEVETIRACETAM SOL (5 ML) 100 MG/ML UDC GT SCH (13:34)
[2024-04-25] MEDS: POTASSIUM PHOSPHATE MM 7.5 MMOL in IV NS 0.9% 100 ML IV SCH (15:36)
[2024-04-25] MEDS: SIMETHICONE SUSP 40 MG/0.6 ML BOTTLE GT SCH (17:45)
[2024-04-26] VITALS (16 sets, daily range): BP systolic 121–139; BP diastolic 82–94; TEMP 97.2–98.8; O2SAT 96–100
[2024-04-26] MEDS ORDERED: PPN IV SCH (00:43)
[2024-04-26 07:06] LABS: CALCIUM, SERUM 8.7 mg/dL (8.5-10.1); CREATININE 0.6 mg/dL (0.6-1.3); MAGNESIUM 1.9 mg/dL (1.8-2.4); PHOSPHORUS 3.6 mg/dL (2.5-4.9); POTASSIUM 3.5 mmol/L (3.5-5.1)
[2024-04-26] MEDS: PANTOPRAZOLE 40 MG/PACK PACK GT SCH (09:17)
[2024-04-26] MEDS: NA PHOS,M-B/NA PHOS,DI-BA 1 EA ENEMA RC PRN (13:30)
[2024-04-27] VITALS (14 sets, daily range): BP systolic 125–142; BP diastolic 78–99; TEMP 98–99.3; O2SAT 97–100
[2024-04-27 08:08] LABS: CALCIUM, SERUM 8.5 mg/dL (8.5-10.1); CREATININE 0.5 mg/dL (0.6-1.3); MAGNESIUM 2.1 mg/dL (1.8-2.4); PHOSPHORUS 3.4 mg/dL (2.5-4.9); POTASSIUM 3.2 mmol/L (3.5-5.1)
[2024-04-27] MEDS: POTASSIUM CHLORIDE 20 MEQ POWDER PACKET PO ONE (16:55)
[2024-04-27] MEDS: FLUTICASONE PROPIONATE 16 GM BOTTLE NS SCH (17:55)
[2024-04-27] MEDS: MELATONIN 3 MG TABLET GT PRN (21:54)
[2024-04-28] VITALS (16 sets, daily range): BP systolic 127–140; BP diastolic 83–94; TEMP 97.5–98.6; O2SAT 95–99
[2024-04-28 07:12] LABS: CALCIUM, SERUM 8.8 mg/dL (8.5-10.1); CREATININE 0.6 mg/dL (0.6-1.3); MAGNESIUM 1.9 mg/dL (1.8-2.4); PHOSPHORUS 3.9 mg/dL (2.5-4.9); POTASSIUM 3.4 mmol/L (3.5-5.1)
[2024-04-28] MEDS: POLYETHYLENE GLYCOL 3350 17 GM POWD.PACK GT SCH (08:59)
[2024-04-29] VITALS (15 sets, daily range): BP systolic 128–145; BP diastolic 67–98; TEMP 98.2–98.6; O2SAT 94–99
[2024-04-29 07:12] LABS: CALCIUM, SERUM 8.6 mg/dL (8.5-10.1); CREATININE 0.5 mg/dL (0.6-1.3); MAGNESIUM 2.1 mg/dL (1.8-2.4); PHOSPHORUS 3.4 mg/dL (2.5-4.9); POTASSIUM 3.3 mmol/L (3.5-5.1)
[2024-04-29] MEDS: POTASSIUM CHLORIDE 20 MEQ POWDER PACKET GT ONE (14:00)
[2024-04-29] MEDS: HEPARIN SODIUM, PORCINE 5000 UNITS/1 ML VIAL SQ SCH (19:00)
[2024-04-30] VITALS (17 sets, daily range): BP systolic 118–149; BP diastolic 78–96; TEMP 98.1–99; O2SAT 97–99
[2024-04-30 07:55] LABS: CREATININE 0.5 mg/dL (0.6-1.3); POTASSIUM 3.7 mmol/L (3.5-5.1)
[2024-05-01] VITALS (14 sets, daily range): BP systolic 119–132; BP diastolic 72–93; TEMP 97.8–98.5; O2SAT 95–100
[2024-05-01 07:14] LABS: CREATININE 0.6 mg/dL (0.6-1.3); POTASSIUM 3.4 mmol/L (3.5-5.1)
[2024-05-01] MEDS: POTASSIUM CHLORIDE 20 MEQ POWDER PACKET NG SCH (15:30)
[2024-05-01] MEDS: JEVITY 1.2 CAL 1,000 ML BOTTLE GT PRN (17:13)
[2024-05-02] VITALS (19 sets, daily range): BP systolic 122–136; BP diastolic 72–90; TEMP 97.2–98.3; O2SAT 94–100
[2024-05-02 07:56] LABS: CALCIUM, SERUM 8.9 mg/dL (8.5-10.1); CREATININE 0.5 mg/dL (0.6-1.3); POTASSIUM 3.7 mmol/L (3.5-5.1)
[2024-05-02] MEDS: HEPARIN SODIUM, PORCINE 5000 UNITS/1 ML VIAL SQ SCH (09:36)
[2024-05-03] VITALS (20 sets, daily range): BP systolic 128–144; BP diastolic 70–95; TEMP 97.7–98.6; O2SAT 95–100
[2024-05-03 07:51] LABS: CREATININE 0.5 mg/dL (0.6-1.3); POTASSIUM 3.6 mmol/L (3.5-5.1)
[2024-05-04] VITALS (20 sets, daily range): BP systolic 120–143; BP diastolic 82–95; TEMP 98–99.5; O2SAT 86–100
[2024-05-04 07:22] LABS: CALCIUM, SERUM 9.1 mg/dL (8.5-10.1); CREATININE 0.7 mg/dL (0.6-1.3); POTASSIUM 3.6 mmol/L (3.5-5.1)
[2024-05-04] MEDS: LANOLIN/MIN OIL/PETROLAT,WHT 3.5 GM TUBE OP PRN (16:37)
[2024-05-05] VITALS (22 sets, daily range): BP systolic 124–159; BP diastolic 80–98; TEMP 98–101.7; O2SAT 94–99
[2024-05-06] VITALS (19 sets, daily range): BP systolic 129–157; BP diastolic 75–94; TEMP 97.3–99.1; O2SAT 92–99
[2024-05-07] VITALS (18 sets, daily range): BP systolic 127–135; BP diastolic 84–95; TEMP 98–99; O2SAT 94–99
[2024-05-07] MEDS ORDERED: MENTHOL/CETYLPYRD (CEPACOL) 1 LOZ LOZENGE PO PRN (13:30)
[2024-05-08] VITALS (18 sets, daily range): BP systolic 122–130; BP diastolic 85–91; TEMP 98.6–98.8; O2SAT 94–97
[2024-05-08] MEDS ORDERED: GUAIFENESIN 300 MG/15 ML UDC GT PRN (14:30)
[2024-05-09] VITALS (18 sets, daily range): BP systolic 121–126; BP diastolic 86–90; TEMP 98–98.6; O2SAT 92–98
[2024-05-09] MEDS: HEPARIN SODIUM, PORCINE 5000 UNITS/1 ML VIAL SQ SCH (08:57)
[2024-05-10] VITALS (17 sets, daily range): BP systolic 126–128; BP diastolic 82–92; TEMP 98.2–99.9; O2SAT 94–99
[2024-05-11] VITALS (13 sets, daily range): BP systolic 126–141; BP diastolic 91–95; TEMP 97.8–98.6; O2SAT 89–98
[2024-05-11] MEDS: CARBAMIDE PEROXIDE OTIC 15 ML BOTTLE EACH EAR PRN (10:27)
[2024-05-12] VITALS (12 sets, daily range): BP systolic 123; BP diastolic 94; TEMP 97.9; O2SAT 93–96
[2024-05-12] MEDS: JEVITY 1.2 CAL 1,000 ML BOTTLE GT PRN (05:32)
[2024-05-13] VITALS (15 sets, daily range): BP systolic 138–141; BP diastolic 84–98; TEMP 97.8–98.1; O2SAT 91–99
[2024-05-14] VITALS (15 sets, daily range): BP systolic 133–148; BP diastolic 83–96; TEMP 98.4–98.6; O2SAT 92–98
[2024-05-15] VITALS (16 sets, daily range): BP systolic 127–144; BP diastolic 92–96; TEMP 98.6–99; O2SAT 93–98
[2024-05-16] VITALS (17 sets, daily range): BP systolic 124–126; BP diastolic 85–88; TEMP 98.6–99; O2SAT 92–100
[2024-05-17] VITALS (10 sets, daily range): BP systolic 130–139; BP diastolic 93; TEMP 99–100; O2SAT 90–100
[2024-05-18] VITALS (12 sets, daily range): BP systolic 132–136; BP diastolic 91–98; TEMP 98–99.1; O2SAT 92–99
[2024-05-19] VITALS (13 sets, daily range): BP systolic 130; BP diastolic 89; TEMP 98.8; O2SAT 93–98
[2024-05-20] VITALS (13 sets, daily range): BP systolic 129–138; BP diastolic 88–91; TEMP 99.3–100.4; O2SAT 91–98
[2024-05-20] MEDS ORDERED: CIPR7.5D9 EACH EAR (13:51)
[2024-05-20] MEDS: NEOM/POLY B SULF/HC OTIC SUSP 10 ML BOTTLE EACH EAR SCH (14:30)
[2024-05-21] VITALS (13 sets, daily range): BP systolic 122–132; BP diastolic 89–92; TEMP 98.6–99; O2SAT 91–98
[2024-05-21 10:41] LABS: BASOPHILS % (AUTO) 0.2 % (0.0-2.0); EOSINOPHILS % (AUTO) 0.2 % (0.0-6.0); HEMATOCRIT 32 % (39-51); HEMOGLOBIN 10.8 g/dL (13.5-17.5); LYMPHOCYTES # (AUTO) 0.9 K/uL (0.8-4.8); LYMPHOCYTES % (AUTO) 6.5 % (20.0-44.0); MEAN CORPUSCULAR HEMOGLOBIN 32 PG (26.0-33.0); MEAN CORPUSCULAR HGB CONC 34 g/dl (31.0-36.0); MEAN CORPUSCULAR VOLUME 94 fL (80-96); MONOCYTES # (AUTO) 0.7 K/uL (0.1-1.30); MONOCYTES % (AUTO) 5.4 % (2.0-12.0); NEUTROPHILS # (AUTO) 11.7 K/uL (1.8-8.9); NEUTROPHILS % (AUTO) 87.7 % (43.0-81.0); PLATELET COUNT (AUTO) 342 K/uL (150-450); RED BLOOD CELL COUNT(AUTO) 3.39 MIL/uL (4.5-6.0); RED CELL DISTRIBUTION WIDTH 13.8 % (11.5-15.0); WHITE BLOOD COUNT (AUTO) 13.3 K/uL (4.3-11.0)
[2024-05-21 10:54] LABS: CALCIUM, SERUM 9.1 mg/dL (8.5-10.1); CREATININE 0.6 mg/dL (0.6-1.3); POTASSIUM 3.2 mmol/L (3.5-5.1)
[2024-05-21] MEDS: POTASSIUM CHLORIDE 20 MEQ POWDER PACKET GT ONE (16:30)
[2024-05-21] MEDS: CEFTRIAXONE 1 G in IV D5W 50 ML IV SCH (18:45)
[2024-05-21] MEDS ORDERED: POTASSIUM CHLORIDE 20 MEQ POWDER PACKET ONE (18:46)
[2024-05-22] VITALS (14 sets, daily range): BP systolic 117–133; BP diastolic 89–90; TEMP 98.1–98.6; O2SAT 95–98
[2024-05-22] MEDS: PSEUDOEPHEDRINE HCL 30 MG TABLET GT SCH (21:26)
[2024-05-23] VITALS (18 sets, daily range): BP systolic 129–130; BP diastolic 90–96; TEMP 97.8–98.2; O2SAT 92–99
[2024-05-24] VITALS (17 sets, daily range): BP systolic 120–130; BP diastolic 89–91; TEMP 97.9–98.6; O2SAT 95–99
[2024-05-24] MEDS ORDERED: hydrALAZINE HCL 10 MG TABLET PO PRN (19:21)
[2024-05-24] MEDS ORDERED: ACETAMINOPHEN 650 MG/20 ML UDC- SA PATIENTS-PAIN ONLY PO PRN (19:22)
[2024-05-24] MEDS ORDERED: GUAIFENESIN 300 MG/15 ML UDC PO PRN (19:22)
[2024-05-24] MEDS ORDERED: LEVETIRACETAM SOL (5 ML) 100 MG/ML UDC ONE (20:10)
[2024-05-24] MEDS: LEVETIRACETAM (250 MG) 250 MG TABLET PO SCH (21:06)
[2024-05-24] MEDS: MELATONIN 3 MG TABLET PO PRN (21:07)
[2024-05-24] MEDS: PSEUDOEPHEDRINE HCL 30 MG TABLET PO SCH (21:07)
[2024-05-24] MEDS: METOCLOPRAMIDE HCL 10 MG/10 ML UDC PO SCH (23:27)
[2024-05-24] MEDS: SIMETHICONE SUSP 40 MG/0.6 ML BOTTLE PO SCH (23:27)
[2024-05-25] VITALS (10 sets, daily range): BP systolic 130; BP diastolic 91; TEMP 97.9; O2SAT 96–100
[2024-05-25] MEDS: POLYETHYLENE GLYCOL 3350 17 GM POWD.PACK PO SCH (09:00)
[2024-05-25] MEDS: DOCUSATE SODIUM 100 MG CAPSULE PO SCH (09:00)
[2024-05-25] MEDS: LEVETIRACETAM (250 MG) 250 MG TABLET PO SCH (09:41)
[2024-05-25] MEDS: PANTOPRAZOLE 40 MG TABLET.DR PO SCH (09:42)
[2024-05-25] MEDS: AMLODIPINE BESYLATE 5 MG TABLET PO SCH (09:42)
[2024-05-26] VITALS (14 sets, daily range): BP systolic 123–137; BP diastolic 79–93; TEMP 97.8–98.1; O2SAT 97–100
[2024-05-27] VITALS (13 sets, daily range): BP systolic 117–135; BP diastolic 89–91; TEMP 97.7–98.4; O2SAT 93–100
[2024-05-28] VITALS (16 sets, daily range): BP systolic 128–135; BP diastolic 94–95; TEMP 98.1–98.2; O2SAT 93–100
[2024-05-29] VITALS (11 sets, daily range): BP systolic 122–146; BP diastolic 89–96; TEMP 98.2; O2SAT 94–100
[2024-05-30] VITALS (16 sets, daily range): BP systolic 120–122; BP diastolic 79–86; TEMP 97.8–98.1; O2SAT 96–99
[2024-05-31] VITALS (18 sets, daily range): BP systolic 128–138; BP diastolic 91–99; TEMP 97.4; O2SAT 92–100
[2024-06-01] VITALS (13 sets, daily range): BP systolic 126–135; BP diastolic 94; TEMP 97.7–98; O2SAT 94–99
[2024-06-02] VITALS (12 sets, daily range): BP systolic 103–136; BP diastolic 60–94; TEMP 98.3–98.8; O2SAT 88–99
[2024-06-03] VITALS (12 sets, daily range): BP systolic 123–139; BP diastolic 79–86; TEMP 97.7–98.1; O2SAT 94–100
[2024-06-04] VITALS (12 sets, daily range): BP systolic 121–129; BP diastolic 87; TEMP 98.1–99.1; O2SAT 95–100
[2024-06-05] VITALS (9 sets, daily range): BP systolic 122; BP diastolic 86; TEMP 98.2; O2SAT 95–98
[2024-06-06] VITALS (12 sets, daily range): BP systolic 120; BP diastolic 89; TEMP 98; O2SAT 93–98
== END 2024-06-05 23:59 | disposition still patient (30) | DRG 207 ==
LOC: SA 14:53
PROVIDERS: ADMIT Internal Medicine; ATTEND Internal Medicine
PROC: 5A1955Z Respiratory Ventilation, Greater than 96 Consecutive Hours (ICD-10-PCS; principal; 2024-04-18)
DX: J96.11 Chronic respiratory failure with hypoxia (principal); I21.A1 Myocardial infarction type 2; G93.41 Metabolic encephalopathy; A92.32 West Nile virus infection with other neurologic manifestation; K56.7 Ileus, unspecified; M62.82 Rhabdomyolysis; A87.8 Other viral meningitis; E87.1 Hypo-osmolality and hyponatremia; F41.9 Anxiety disorder, unspecified; H91.90 Unspecified hearing loss, unspecified ear; I10 Essential (primary) hypertension; L60.3 Nail dystrophy; E66.01 Morbid (severe) obesity due to excess calories; R13.10 Dysphagia, unspecified; Z93.0 Tracheostomy status; Z93.1 Gastrostomy status; E87.6 Hypokalemia; R05.9 Cough, unspecified
CPT/HCPCS: 31720; 36415; 36600; 70450-TC; 71045-TC; 73610-TC; 74018; 74230-TC; 80048-TC; 80202-TC; 82803-TC; 82962-TC; 83735-TC; 84100-TC; 84478-TC; 85025-TC; 85652-TC; 86580-TC; 87040-TC; 87086-TC; 92526; 92611-TC; 94002; 94002-TC; 94003-TC; 94640-TC; 94760-TC; 94761-TC; 94762-TC; 94799-TC; 97110-TC; 97112-TC; 97116-TC; 97530-TC; 97535-TC; A4216; A4223; A4623; A7526; J0692; J0696; J1644; J1815; J1953; J2405; J2470; J2765; J3370; J3371; J3475; J3480; J3490; J7030; J7060; J8597; L8501

== ENCOUNTER 2024-05-20 10:34 | Emergency (ER) | payer BC, MEDICAID ==
[~2024-05-20] VITALS: Ht 170.2 cm; Wt 79.8 kg
[2024-05-20 11:25] VITALS: O2SAT 95
[2024-05-20] MEDS ORDERED: CIPR7.5D9 EACH EAR (13:51)
[2024-05-20 14:05] VITALS: BP 132/91; TEMP 99; O2SAT 95
== END 2024-05-20 14:06 | disposition home or self-care (01) ==
LOC: ER 10:36
DX: H61.23 Impacted cerumen, bilateral (principal); I10 Essential (primary) hypertension
CPT/HCPCS: 99283; 69209; A4624

== ENCOUNTER 2024-06-06 00:01 | Inpatient (IN) | payer BC, MEDICAID ==
[~2024-06-06] VITALS: Ht 172.7 cm; Wt 79.8 kg
[~2024-06-06 00:01] MED LIST: CIPR7.5D9 EACH EAR
[2024-06-07] VITALS (15 sets, daily range): BP systolic 124–140; BP diastolic 94–97; TEMP 98.4–98.8; O2SAT 95–97
[2024-06-07] MEDS ORDERED: GUAIFENESIN 300 MG/15 ML UDC PO PRN (08:19)
[2024-06-07] MEDS ORDERED: ONDANSETRON HCL/PF 4 MG/2 ML VIAL IVP PRN (08:19)
[2024-06-07] MEDS ORDERED: hydrALAZINE HCL 10 MG TABLET PO PRN (08:19)
[2024-06-07] MEDS ORDERED: NA PHOS,M-B/NA PHOS,DI-BA 1 EA ENEMA RC PRN (08:19)
[2024-06-07] MEDS ORDERED: NITROGLYCERIN PACKET 1 GM PACKET TOP PRN (08:19)
[2024-06-07] MEDS ORDERED: HYDROGEN PEROXIDE 480 ML BOTTLE TP PRN (08:19)
[2024-06-07] MEDS ORDERED: TUBERCULIN,PURIF.PROT.DERIV. 5 TU/0.1 ML VIAL ID SCH (08:19)
[2024-06-07] MEDS ORDERED: ACETAMINOPHEN 650 MG/20 ML UDC- SA PATIENTS-FEVER ONLY GT PRN (08:19)
[2024-06-07] MEDS ORDERED: LANOLIN/MIN OIL/PETROLAT,WHT 3.5 GM TUBE OP PRN (08:19)
[2024-06-07] MEDS: DOCUSATE SODIUM 100 MG CAPSULE PO SCH (08:50)
[2024-06-07] MEDS: HEPARIN SODIUM, PORCINE 5000 UNITS/1 ML VIAL SQ SCH (09:04)
[2024-06-07] MEDS: PANTOPRAZOLE 40 MG TABLET.DR PO SCH (09:04)
[2024-06-07] MEDS: POLYETHYLENE GLYCOL 3350 17 GM POWD.PACK PO SCH (09:04)
[2024-06-07] MEDS: AMLODIPINE BESYLATE 5 MG TABLET PO SCH (09:04)
[2024-06-07] MEDS: LEVETIRACETAM (250 MG) 250 MG TABLET PO SCH (09:04)
[2024-06-07] MEDS: HYDROGEN PEROXIDE 480 ML BOTTLE TP SCH (09:32)
[2024-06-07] MEDS: ALBUTEROL HALF STRENGTH 1.25 MG/3 ML VIAL.NEB NEB SCH (10:40)
[2024-06-07] MEDS: IPRATROPIUM NEB FS 0.5 MG/2.5 ML AMPUL.NEB NEB SCH (10:40)
[2024-06-07] MEDS: POLYVINYL ALCOHOL 15 ML BOTTLE EACHEYE SCH (12:19)
[2024-06-07] MEDS: METOCLOPRAMIDE HCL 10 MG/10 ML UDC PO SCH (12:19)
[2024-06-07] MEDS: SIMETHICONE SUSP 40 MG/0.6 ML BOTTLE PO SCH (12:19)
[2024-06-07] MEDS: MELATONIN 3 MG TABLET PO PRN (21:22)
[2024-06-08] VITALS (9 sets, daily range): BP systolic 128–137; BP diastolic 89–99; TEMP 97.6–97.9; O2SAT 95–99
[2024-06-09] VITALS (7 sets, daily range): BP systolic 124; BP diastolic 84; TEMP 98.1; O2SAT 95–99
[2024-06-10 07:19] VITALS: O2SAT 96
[2024-06-10 11:08] VITALS: O2SAT 96
[2024-06-10 13:33] VITALS: O2SAT 95
[2024-06-10 20:00] VITALS: BP 127/87; TEMP 97.6; O2SAT 99
[2024-06-10 22:35] VITALS: O2SAT 96
[2024-06-11] VITALS (10 sets, daily range): BP systolic 134–152; BP diastolic 97–98; TEMP 98–98.1; O2SAT 97–100
[2024-06-12] VITALS (9 sets, daily range): BP systolic 121–143; BP diastolic 92–95; TEMP 97.7–98.4; O2SAT 95–99
[2024-06-13 07:22] VITALS: BP 133/90; TEMP 98; O2SAT 100
[2024-06-13 20:00] VITALS: BP 138/94; TEMP 98.3; O2SAT 95
[2024-06-13 20:26] VITALS: O2SAT 98
[2024-06-13 20:41] VITALS: O2SAT 99
[2024-06-13 23:23] VITALS: O2SAT 95
[2024-06-13 23:24] VITALS: O2SAT 98
[2024-06-14] VITALS (12 sets, daily range): BP systolic 138–140; BP diastolic 90–95; TEMP 98.2–98.8; O2SAT 96–100
[2024-06-15] VITALS (7 sets, daily range): BP systolic 132–134; BP diastolic 90–92; TEMP 97.6; O2SAT 96–97
[2024-06-16] VITALS (8 sets, daily range): BP systolic 132–138; BP diastolic 92–94; TEMP 97.7–98.2; O2SAT 95–99
[2024-06-17] VITALS (8 sets, daily range): BP systolic 137–144; BP diastolic 92–93; TEMP 97.7–98.4; O2SAT 96–100
[2024-06-18] VITALS (8 sets, daily range): BP systolic 128–144; BP diastolic 82–98; TEMP 98.4–99.1; O2SAT 97–100
[2024-06-18] MEDS ORDERED: IPRATROPIUM NEB FS 0.5 MG/2.5 ML AMPUL.NEB NEB PRN (16:00)
[2024-06-18] MEDS ORDERED: ALBUTEROL HALF STRENGTH 1.25 MG/3 ML VIAL.NEB NEB PRN (19:30)
[2024-06-19] VITALS (9 sets, daily range): BP systolic 125–136; BP diastolic 89–94; TEMP 98.2–98.4; O2SAT 97–100
[2024-06-20] VITALS (8 sets, daily range): BP systolic 127–130; BP diastolic 97–100; TEMP 97.9–98.1; O2SAT 96–100
[2024-06-21] VITALS (11 sets, daily range): BP systolic 125–169; BP diastolic 85–93; TEMP 97.9–98.1; O2SAT 96–100
[2024-06-22] VITALS (10 sets, daily range): BP systolic 122–152; BP diastolic 90–96; TEMP 97.6–97.7; O2SAT 93–98
[2024-06-23] VITALS (9 sets, daily range): BP systolic 126–155; BP diastolic 90–94; TEMP 98.1–98.2; O2SAT 95–100
[2024-06-24 07:14] VITALS: BP 146/90; TEMP 98.4; O2SAT 100
[2024-06-24 17:07] VITALS: O2SAT 96
[2024-06-24 17:10] VITALS: O2SAT 97
[2024-06-24 19:32] VITALS: BP 134/93; TEMP 98.2; O2SAT 96
[2024-06-24 22:10] VITALS: O2SAT 98
[2024-06-25 07:53] VITALS: BP 134/92; TEMP 98.4; O2SAT 94
[2024-06-25 10:10] VITALS: O2SAT 98
[2024-06-25 19:51] VITALS: BP 121/97; TEMP 98.6; O2SAT 96
[2024-06-25 22:24] VITALS: O2SAT 98
[2024-06-25 23:12] VITALS: O2SAT 98
[2024-06-25 23:13] VITALS: O2SAT 99
[2024-06-26] VITALS (7 sets, daily range): BP systolic 138–140; BP diastolic 92–93; TEMP 97.3–97.9; O2SAT 94–98
[2024-06-27 03:52] VITALS: O2SAT 98
[2024-06-27 07:23] VITALS: BP 146/82; TEMP 97.3; O2SAT 100
[2024-06-27 08:20] VITALS: O2SAT 96
[2024-06-27 20:18] VITALS: O2SAT 96
[2024-06-27 21:11] VITALS: BP 113/60; TEMP 97.6; O2SAT 99
[2024-06-27 22:38] VITALS: O2SAT 98
[2024-06-28] VITALS (9 sets, daily range): BP systolic 127–138; BP diastolic 82–90; TEMP 97.8–97.9; O2SAT 94–100
[2024-06-29] VITALS (11 sets, daily range): BP systolic 113–139; BP diastolic 91–101; TEMP 97.3–97.7; O2SAT 93–99
[2024-06-29] MEDS: DOCUSATE SODIUM 100 MG CAPSULE PO SCH (09:18)
[2024-06-30] VITALS (10 sets, daily range): BP systolic 125–132; BP diastolic 86–94; TEMP 99.7; O2SAT 95–98
[2024-07-01 07:20] VITALS: O2SAT 99
[2024-07-01 07:50] VITALS: BP 110/76; TEMP 98.6; O2SAT 100
[2024-07-01 10:32] VITALS: O2SAT 98
[2024-07-01 11:24] VITALS: O2SAT 99
[2024-07-01 20:42] VITALS: O2SAT 97
[2024-07-01 23:54] VITALS: O2SAT 98
[2024-07-02] VITALS (9 sets, daily range): BP systolic 127–136; BP diastolic 87–97; TEMP 98.2–98.4; O2SAT 97–100
[2024-07-03] VITALS (10 sets, daily range): BP systolic 117–129; BP diastolic 86–96; TEMP 98.1–98.2; O2SAT 94–98
[2024-07-04] VITALS (9 sets, daily range): BP systolic 129–130; BP diastolic 80–88; TEMP 97.8–98.1; O2SAT 96–100
[2024-07-05] VITALS (7 sets, daily range): BP systolic 123–133; BP diastolic 89–94; TEMP 99; O2SAT 97–100
[2024-07-06] VITALS (9 sets, daily range): BP systolic 128–134; BP diastolic 90–98; TEMP 98.1–98.6; O2SAT 94–100
[2024-07-07] VITALS (9 sets, daily range): BP systolic 139–141; BP diastolic 90–97; TEMP 98–98.1; O2SAT 94–98
[2024-07-08] VITALS (8 sets, daily range): BP systolic 119–128; BP diastolic 79–88; TEMP 97.9–99; O2SAT 94–100
[2024-07-09] VITALS (9 sets, daily range): BP systolic 124–134; BP diastolic 93–98; TEMP 98.1–98.2; O2SAT 92–99
[2024-07-10] VITALS (12 sets, daily range): BP systolic 125–142; BP diastolic 90–97; TEMP 98–98.1; O2SAT 96–99
[2024-07-11] VITALS (9 sets, daily range): BP systolic 116–135; BP diastolic 78–93; TEMP 96.8–97.9; O2SAT 94–98
[2024-07-11 07:54] LABS: INR 1.06 (0.91-1.10); PARTIAL THROMBOPLASTIN TIME 28.5 SEC (24.3-34.3); PROTHROMBIN TIME 11.2 SECS (9.2-11.1)
[2024-07-11 08:19] LABS: BASOPHILS # (AUTO) 0.1 K/uL (0.0-0.2); BASOPHILS % (AUTO) 0.4 % (0.0-2.0); EOSINOPHILS # (AUTO) 0.4 K/uL (0.0-0.7); EOSINOPHILS % (AUTO) 3.1 % (0.0-6.0); HEMATOCRIT 34 % (39-51); HEMOGLOBIN 11.6 g/dL (13.5-17.5); LYMPHOCYTES # (AUTO) 1.9 K/uL (0.8-4.8); LYMPHOCYTES % (AUTO) 14.7 % (20.0-44.0); MEAN CORPUSCULAR HEMOGLOBIN 30 PG (26.0-33.0); MEAN CORPUSCULAR HGB CONC 34 g/dl (31.0-36.0); MEAN CORPUSCULAR VOLUME 90 fL (80-96); MONOCYTES # (AUTO) 0.8 K/uL (0.1-1.30); MONOCYTES % (AUTO) 5.8 % (2.0-12.0); PLATELET COUNT (AUTO) 270 K/uL (150-450); RED CELL DISTRIBUTION WIDTH 13.5 % (11.5-15.0); WHITE BLOOD COUNT (AUTO) 13.2 K/uL (4.3-11.0)
[2024-07-11 08:21] LABS: CALCIUM, SERUM 9.2 mg/dL (8.5-10.1); CREATININE 0.6 mg/dL (0.6-1.3); POTASSIUM 3.6 mmol/L (3.5-5.1)
[2024-07-11 08:45] LABS: PLATELET ESTIMATE ADEQUATE
[2024-07-11 08:54] LABS: EOSINOPHILS % (MANUAL) 3 % (0-4); LYMPHOCYTES % (MANUAL) 14 % (16-48); MONOCYTES % (MANUAL) 7 % (0-11.0); NEUTROPHILS % (MANUAL) 76 (42-76)
[2024-07-12] VITALS (9 sets, daily range): BP systolic 129–132; BP diastolic 89–91; TEMP 97.2–98.2; O2SAT 96–100
[2024-07-13] VITALS (10 sets, daily range): BP systolic 133–138; BP diastolic 91–92; TEMP 97.7–98.1; O2SAT 96–100
[2024-07-14] VITALS (7 sets, daily range): BP systolic 135–143; BP diastolic 95–96; TEMP 97–97.9; O2SAT 95–100
[2024-07-15] VITALS (7 sets, daily range): BP systolic 120–148; BP diastolic 83–94; TEMP 97.7–98.1; O2SAT 97–100
[2024-07-16] VITALS (9 sets, daily range): BP systolic 129–139; BP diastolic 81–97; TEMP 98.1–98.3; O2SAT 96–100
[2024-07-17 07:32] VITALS: BP 147/98; TEMP 97.7; O2SAT 99
[2024-07-17 07:45] VITALS: O2SAT 100
[2024-07-17 10:44] VITALS: O2SAT 100; O2SAT 97
[2024-07-17 20:00] VITALS: BP 116/90; TEMP 97.5; O2SAT 99
[2024-07-17 20:06] VITALS: O2SAT 98
[2024-07-17 22:33] VITALS: O2SAT 98
[2024-07-18] VITALS (8 sets, daily range): BP systolic 135–138; BP diastolic 89–94; TEMP 97.9–98.4; O2SAT 96–100
[2024-07-19] VITALS (10 sets, daily range): BP systolic 124–130; BP diastolic 72–96; TEMP 98.2–98.4; O2SAT 97–100
[2024-07-20] VITALS (10 sets, daily range): BP systolic 111–138; BP diastolic 59–100; TEMP 97.9–98; O2SAT 97–100
[2024-07-21] VITALS (8 sets, daily range): BP systolic 128–140; BP diastolic 92–93; TEMP 97.3–98.1; O2SAT 95–100
[2024-07-21] MEDS: ACETAMINOPHEN 650 MG/20 ML UDC- SA PATIENTS-PAIN ONLY PO PRN (16:21)
[2024-07-22] VITALS (8 sets, daily range): BP systolic 120–132; BP diastolic 82–90; TEMP 97.8–98; O2SAT 98–100
[2024-07-23] VITALS (7 sets, daily range): BP systolic 138; BP diastolic 96; TEMP 97.9; O2SAT 96–99
[2024-07-23] MEDS ORDERED: MELA3TAB41 PO (15:41)
[2024-07-23] MEDS ORDERED: ONDA2VIA IVP (15:41)
[2024-07-23] MEDS ORDERED: POLY17PO29 PO (15:41)
[2024-07-23] MEDS ORDERED: DOCU100C36 PO (15:41)
[2024-07-23] MEDS ORDERED: POLY15DR40 EACHEYE (15:41)
[2024-07-23] MEDS ORDERED: HYDR-4075 PO (15:41)
[2024-07-23] MEDS ORDERED: ACET650T10 PO (15:41)
[2024-07-23] MEDS ORDERED: GUAI100S9 PO (15:41)
[2024-07-23] MEDS ORDERED: NA P133E RC (15:41)
[2024-07-23] MEDS ORDERED: ALBU1.25 NEB (15:41)
[2024-07-23] MEDS ORDERED: IPRA0.2S49 NEB (15:41)
[2024-07-23] MEDS ORDERED: PANT40TA49 PO (15:41)
[2024-07-23] MEDS ORDERED: NITR1OIN2 TP (15:41)
[2024-07-23] MEDS ORDERED: LEVE250T4 PO (15:41)
[2024-07-23] MEDS ORDERED: AMLO-212 PO (15:41)
[2025-04-19] MEDS ORDERED: TUBERCULIN,PURIF.PROT.DERIV. 5 TU/0.1 ML VIAL ID SCH (10:00)
== END 2024-07-23 13:25 | disposition short-term general hospital (02) | DRG 189 ==
LOC: SA 00:01
PROVIDERS: ADMIT Internal Medicine; ATTEND Internal Medicine
PROC: 0DP6XUZ Removal of Feeding Device from Stomach, External Approach (ICD-10-PCS; principal; 2024-06-11)
DX: J96.21 Acute and chronic respiratory failure with hypoxia (principal); G93.41 Metabolic encephalopathy; A92.32 West Nile virus infection with other neurologic manifestation; I21.A1 Myocardial infarction type 2; R65.20 Severe sepsis without septic shock; A41.9 Sepsis, unspecified organism; G02 Meningitis in other infectious and parasitic diseases classified elsewhere; K56.7 Ileus, unspecified; M62.82 Rhabdomyolysis; J98.11 Atelectasis; E87.0 Hyperosmolality and hypernatremia; Z99.11 Dependence on respirator [ventilator] status; I10 Essential (primary) hypertension; J96.22 Acute and chronic respiratory failure with hypercapnia; R13.10 Dysphagia, unspecified; Z93.1 Gastrostomy status; Z93.0 Tracheostomy status; E66.01 Morbid (severe) obesity due to excess calories; E87.6 Hypokalemia; H91.90 Unspecified hearing loss, unspecified ear; F41.9 Anxiety disorder, unspecified; Z68.26 Body mass index [BMI] 26.0-26.9, adult
CPT/HCPCS: 31720; 36415; 73630-TC; 80048-TC; 85025-TC; 85610-TC; 85730-TC; 86580-TC; 88300-TC; 92526; 92611-TC; 94760-TC; 94762-TC; 94799-TC; 97110-TC; 97112-TC; 97116-TC; 97530-TC; 97535-TC; A4623; A7526; J1644; J2704; J3490; J8597

== ENCOUNTER 2024-07-12 09:43 | Day surgery (SDC) | payer BC, MEDICAID ==
[2024-08-03] MEDS ORDERED: Aspirin Ec PO (09:12)
[2024-08-03] MEDS ORDERED: METO50TA16 PO (09:12)
== END 2024-07-12 12:35 ==
LOC: DS 09:43
PROVIDERS: ATTEND Internal Medicine
DX: R13.10 Dysphagia, unspecified (principal); I10 Essential (primary) hypertension; Z43.1 Encounter for attention to gastrostomy; I25.2 Old myocardial infarction; Z87.440 Personal history of urinary (tract) infections; Z79.899 Other long term (current) drug therapy
CPT/HCPCS: 43761

== ENCOUNTER 2024-07-23 13:31 | Inpatient (IN) | payer BC, OTHER ==
[~2024-07-23] VITALS: Ht 167.6 cm; Wt 81.8 kg
[2024-07-23] MEDS ORDERED: Z GUARD REMEDY 4 OZ OINT TP PRN (15:30)
[2024-07-23] MEDS ORDERED: ACETAMINOPHEN 325 MG TABLET PO PRN (15:30)
[2024-07-23] MEDS ORDERED: ONDANSETRON HCL/PF 4 MG/2 ML VIAL IVP PRN (15:30)
[2024-07-23] MEDS ORDERED: AMLO-212 PO (15:41)
[2024-07-23] MEDS ORDERED: POLY15DR40 EACHEYE (15:41)
[2024-07-23] MEDS ORDERED: ONDA2VIA IVP (15:41)
[2024-07-23] MEDS ORDERED: NA P133E RC (15:41)
[2024-07-23] MEDS ORDERED: ACET650T10 PO (15:41)
[2024-07-23] MEDS ORDERED: LEVE250T4 PO (15:41)
[2024-07-23] MEDS ORDERED: HYDR-4075 PO (15:41)
[2024-07-23] MEDS ORDERED: POLY17PO29 PO (15:41)
[2024-07-23] MEDS ORDERED: ALBU1.25 NEB (15:41)
[2024-07-23] MEDS ORDERED: IPRA0.2S49 NEB (15:41)
[2024-07-23] MEDS ORDERED: GUAI100S9 PO (15:41)
[2024-07-23] MEDS ORDERED: MELA3TAB41 PO (15:41)
[2024-07-23] MEDS ORDERED: NITR1OIN2 TP (15:41)
[2024-07-23] MEDS ORDERED: PANT40TA49 PO (15:41)
[2024-07-23] MEDS ORDERED: DOCU100C36 PO (15:41)
[2024-07-23 16:06] LABS: BASOPHILS % (AUTO) 0.3 % (0.0-2.0); EOSINOPHILS # (AUTO) 0.1 K/uL (0.0-0.7); EOSINOPHILS % (AUTO) 1.2 % (0.0-6.0); HEMATOCRIT 37 % (39-51); HEMOGLOBIN 12.8 g/dL (13.5-17.5); LYMPHOCYTES # (AUTO) 1.9 K/uL (0.8-4.8); LYMPHOCYTES % (AUTO) 20.5 % (20.0-44.0); MEAN CORPUSCULAR HEMOGLOBIN 31 PG (26.0-33.0); MEAN CORPUSCULAR HGB CONC 35 g/dl (31.0-36.0); MEAN CORPUSCULAR VOLUME 88 fL (80-96); MONOCYTES # (AUTO) 0.8 K/uL (0.1-1.30); NEUTROPHILS # (AUTO) 6.6 K/uL (1.8-8.9); PLATELET COUNT (AUTO) 277 K/uL (150-450); RED BLOOD CELL COUNT(AUTO) 4.13 MIL/uL (4.5-6.0); RED CELL DISTRIBUTION WIDTH 13.6 % (11.5-15.0); WHITE BLOOD COUNT (AUTO) 9.5 K/uL (4.3-11.0)
[2024-07-23 16:28] LABS: CALCIUM, SERUM 8.9 mg/dL (8.5-10.1); CARBON DIOXIDE 34 mmol/L (21-32); CHLORIDE 103 mmol/L (98-107); CREATININE 0.8 mg/dL (0.6-1.3); GLUCOSE 102 mg/dL (74-106); POTASSIUM 3.8 mmol/L (3.5-5.1); SODIUM SERUM 143 mmol/L (136-145); UREA NITROGEN, BLOOD 12 mg/dL (7-18)
[2024-07-23 16:48] VITALS: BP 139/97; TEMP 97.9
[2024-07-23] MEDS: ENOXAPARIN SODIUM 40 MG/0.4 ML DISP.SYRIN SQ SCH (17:26)
[2024-07-23 20:00] VITALS: BP 134/99; TEMP 98.8; O2SAT 96
[2024-07-24] VITALS: BP 135/94; TEMP 98.6; O2SAT 96
[2024-07-24 04:00] VITALS: BP 125/97; TEMP 98.8; O2SAT 95
[2024-07-24 06:43] LABS: BASOPHILS % (AUTO) 0.4 % (0.0-2.0); EOSINOPHILS # (AUTO) 0.1 K/uL (0.0-0.7); EOSINOPHILS % (AUTO) 1.6 % (0.0-6.0); HEMATOCRIT 36 % (39-51); HEMOGLOBIN 12.2 g/dL (13.5-17.5); LYMPHOCYTES # (AUTO) 1.5 K/uL (0.8-4.8); LYMPHOCYTES % (AUTO) 20.9 % (20.0-44.0); MEAN CORPUSCULAR HEMOGLOBIN 30 PG (26.0-33.0); MEAN CORPUSCULAR HGB CONC 34 g/dl (31.0-36.0); MEAN CORPUSCULAR VOLUME 89 fL (80-96); MONOCYTES # (AUTO) 0.5 K/uL (0.1-1.30); MONOCYTES % (AUTO) 7.4 % (2.0-12.0); NEUTROPHILS % (AUTO) 69.7 % (43.0-81.0); PLATELET COUNT (AUTO) 243 K/uL (150-450); RED BLOOD CELL COUNT(AUTO) 4.02 MIL/uL (4.5-6.0); RED CELL DISTRIBUTION WIDTH 13.4 % (11.5-15.0); WHITE BLOOD COUNT (AUTO) 7.2 K/uL (4.3-11.0)
[2024-07-24 06:51] LABS: CALCIUM, SERUM 9.7 mg/dL (8.5-10.1); CREATININE 0.7 mg/dL (0.6-1.3); MAGNESIUM 2.1 mg/dL (1.8-2.4); POTASSIUM 3.4 mmol/L (3.5-5.1)
[2024-07-24 08:00] VITALS: BP 139/96; TEMP 98.1; O2SAT 96
[2024-07-24] MEDS: ASPIRIN EC 81 MG TABLET.DR PO SCH (08:41)
[2024-07-24] MEDS: POTASSIUM CHLORIDE 20 MEQ TAB.PRT.SR PO SCH (10:43)
[2024-07-24] MEDS: METOPROLOL TARTRATE 50 MG TABLET PO SCH (11:54)
[2024-07-24 12:00] VITALS: BP 126/97; TEMP 98.1; O2SAT 97
[2024-07-24 16:00] VITALS: BP 111/83; TEMP 98.1; O2SAT 95
[2024-07-24] MEDS: DOCUSATE SODIUM 100 MG CAPSULE PO SCH (17:13)
[2024-07-24 20:00] VITALS: BP 109/83; TEMP 98.3; O2SAT 93
[2024-07-24] MEDS: LEVETIRACETAM (250 MG) 250 MG TABLET PO SCH (20:44)
[2024-07-24] MEDS: POLYVINYL ALCOHOL/POVIDONE 0.4 ML DROPERETTE EACHEYE SCH (20:44)
[2024-07-25] VITALS: BP 128/84; TEMP 97.7; O2SAT 97
[2024-07-25 04:00] VITALS: BP 131/90; TEMP 98.1; O2SAT 96
[2024-07-25 07:03] LABS: CALCIUM, SERUM 9.4 mg/dL (8.5-10.1); CREATININE 0.7 mg/dL (0.6-1.3); POTASSIUM 3.9 mmol/L (3.5-5.1)
[2024-07-25 08:00] VITALS: BP 116/89; TEMP 98.1; O2SAT 97
[2024-07-25 08:42] LABS: CHOLESTEROL 211 mg/dL (<200); HDL CHOLESTEROL 41 mg/dL (40-60); LDL 144 mg/dL (0-99); TRIGLYCERIDES 228 mg/dL (30-150)
[2024-07-25] MEDS: PANTOPRAZOLE 40 MG TABLET.DR PO SCH (08:52)
[2024-07-25] MEDS: POLYETHYLENE GLYCOL 3350 17 GM POWD.PACK PO SCH (08:53)
[2024-07-25] MEDS: AMLODIPINE BESYLATE 5 MG TABLET PO SCH (08:53)
[2024-07-25 13:00] VITALS: BP 109/76; TEMP 97.7; O2SAT 95
[2024-07-25] MEDS: POLYVINYL ALCOHOL 15 ML BOTTLE OP SCH (13:44)
[2024-07-25 20:20] VITALS: BP 114/75; TEMP 98.2; O2SAT 95
[2024-07-25 21:00] VITALS: BP 114/75; TEMP 98.2; O2SAT 95
[2024-07-26 04:00] VITALS: BP 139/84; TEMP 97.7; O2SAT 96
[2024-07-26 07:10] LABS: CALCIUM, SERUM 8.7 mg/dL (8.5-10.1); CREATININE 0.8 mg/dL (0.6-1.3); MAGNESIUM 1.9 mg/dL (1.8-2.4); PHOSPHORUS 4.2 mg/dL (2.5-4.9); POTASSIUM 3.6 mmol/L (3.5-5.1)
[2024-07-26 07:41] LABS: BASOPHILS % (AUTO) 0.3 % (0.0-2.0); EOSINOPHILS # (AUTO) 0.2 K/uL (0.0-0.7); EOSINOPHILS % (AUTO) 1.9 % (0.0-6.0); HEMATOCRIT 36 % (39-51); HEMOGLOBIN 12.2 g/dL (13.5-17.5); LYMPHOCYTES # (AUTO) 1.9 K/uL (0.8-4.8); LYMPHOCYTES % (AUTO) 23.2 % (20.0-44.0); MEAN CORPUSCULAR HEMOGLOBIN 30 PG (26.0-33.0); MEAN CORPUSCULAR HGB CONC 34 g/dl (31.0-36.0); MEAN CORPUSCULAR VOLUME 90 fL (80-96); MONOCYTES # (AUTO) 0.7 K/uL (0.1-1.30); MONOCYTES % (AUTO) 8.7 % (2.0-12.0); NEUTROPHILS # (AUTO) 5.4 K/uL (1.8-8.9); NEUTROPHILS % (AUTO) 65.9 % (43.0-81.0); PLATELET COUNT (AUTO) 249 K/uL (150-450); RED BLOOD CELL COUNT(AUTO) 4.01 MIL/uL (4.5-6.0); RED CELL DISTRIBUTION WIDTH 13.3 % (11.5-15.0); WHITE BLOOD COUNT (AUTO) 8.2 K/uL (4.3-11.0)
[2024-07-26 08:00] VITALS: BP 127/92; TEMP 97.7; O2SAT 96
[2024-07-26 16:00] VITALS: BP 118/76; TEMP 97.7; O2SAT 96
[2024-07-26 20:00] VITALS: BP 116/80; TEMP 98.2; O2SAT 94
[2024-07-27 04:00] VITALS: BP 136/84; TEMP 97.7; O2SAT 95
[2024-07-27 06:53] LABS: BASOPHILS % (AUTO) 0.4 % (0.0-2.0); EOSINOPHILS # (AUTO) 0.2 K/uL (0.0-0.7); HEMATOCRIT 37 % (39-51); HEMOGLOBIN 12.8 g/dL (13.5-17.5); MEAN CORPUSCULAR HEMOGLOBIN 31 PG (26.0-33.0); MEAN CORPUSCULAR HGB CONC 35 g/dl (31.0-36.0); MEAN CORPUSCULAR VOLUME 89 fL (80-96); MONOCYTES # (AUTO) 0.6 K/uL (0.1-1.30); MONOCYTES % (AUTO) 7.5 % (2.0-12.0); NEUTROPHILS # (AUTO) 5.5 K/uL (1.8-8.9); NEUTROPHILS % (AUTO) 66.1 % (43.0-81.0); PLATELET COUNT (AUTO) 248 K/uL (150-450); RED BLOOD CELL COUNT(AUTO) 4.12 MIL/uL (4.5-6.0); RED CELL DISTRIBUTION WIDTH 13.2 % (11.5-15.0); WHITE BLOOD COUNT (AUTO) 8.4 K/uL (4.3-11.0)
[2024-07-27 07:07] LABS: CALCIUM, SERUM 9.4 mg/dL (8.5-10.1); CREATININE 0.7 mg/dL (0.6-1.3); MAGNESIUM 1.9 mg/dL (1.8-2.4); POTASSIUM 3.6 mmol/L (3.5-5.1)
[2024-07-27 08:00] VITALS: BP 131/99; TEMP 98; O2SAT 98
[2024-07-27 16:00] VITALS: BP 119/80; TEMP 98.1; O2SAT 98
[2024-07-27 21:57] VITALS: BP 120/89; TEMP 98.1; O2SAT 97
[2024-07-28 04:49] VITALS: BP 132/83; TEMP 97.7; O2SAT 94
[2024-07-28 08:00] VITALS: BP 131/96; TEMP 98.2; O2SAT 96
[2024-07-28 16:00] VITALS: BP 113/81; TEMP 98.2; O2SAT 94
[2024-07-28 22:00] VITALS: BP 112/79; TEMP 98.2; O2SAT 100
[2024-07-29 04:00] VITALS: BP 146/85; TEMP 98.2; O2SAT 100
[2024-07-29 08:00] VITALS: BP 124/94; TEMP 98.1; O2SAT 98
[2024-07-29 16:00] VITALS: BP 104/77; TEMP 98.1; O2SAT 98
[2024-07-29 21:05] VITALS: BP 106/76; TEMP 98.1; O2SAT 94
[2024-07-30 05:26] VITALS: BP 119/82; TEMP 98.5; O2SAT 96
[2024-07-30 08:35] VITALS: BP 125/77; TEMP 98.1; O2SAT 98
[2024-07-30 16:05] VITALS: BP 136/85; TEMP 98.2; O2SAT 100
[2024-07-30 20:00] VITALS: BP 117/81; TEMP 98.2; O2SAT 94
[2024-07-31 04:00] VITALS: BP 125/85; TEMP 98.2; O2SAT 94
[2024-07-31 16:00] VITALS: BP 123/87; TEMP 98.2
[2024-07-31 20:00] VITALS: BP 101/75; TEMP 97.9; O2SAT 95
[2024-08-01 04:00] VITALS: BP 123/87; TEMP 97.9; O2SAT 95
[2024-08-01 13:30] VITALS: BP 120/79; TEMP 98.1
[2024-08-01 16:00] VITALS: BP 112/79; TEMP 98.1
[2024-08-01 20:00] VITALS: BP 114/84; TEMP 98.4
[2024-08-02 04:00] VITALS: BP 141/84; TEMP 97.5; O2SAT 94
[2024-08-02 08:00] VITALS: BP 132/95; TEMP 97.3; O2SAT 95
[2024-08-02 16:00] VITALS: BP 121/87; TEMP 98.1; O2SAT 97
[2024-08-02 20:00] VITALS: BP 121/87; TEMP 98.1; O2SAT 97
[2024-08-03 04:00] VITALS: BP 136/89; TEMP 98.2; O2SAT 96
[2024-08-03 08:00] VITALS: BP 125/88; TEMP 97.3; O2SAT 94
[2024-08-03] MEDS ORDERED: Aspirin Ec PO (09:12)
[2024-08-03] MEDS ORDERED: METO50TA16 PO (09:12)
[2024-08-03 12:00] VITALS: BP 110/74
== END 2024-08-03 15:09 | DRG 206 ==
LOC: ER 13:38 → TELE1 15:25 → MEDSG1 07-25 08:32
PROVIDERS: ADMIT Nurse Practitioner Acute Care; ATTEND Internal Medicine
DX: M94.0 Chondrocostal junction syndrome [Tietze] (principal); J96.10 Chronic respiratory failure, unspecified whether with hypoxia or hypercapnia; Z86.61 Personal history of infections of the central nervous system; I25.2 Old myocardial infarction; E87.6 Hypokalemia; Z93.0 Tracheostomy status; Z53.20 Procedure and treatment not carried out because of patient's decision for unspecified reasons; I10 Essential (primary) hypertension; Z79.51 Long term (current) use of inhaled steroids; Z79.899 Other long term (current) drug therapy; Z87.39 Personal history of other diseases of the musculoskeletal system and connective tissue; Z93.1 Gastrostomy status; J98.6 Disorders of diaphragm
CPT/HCPCS: 36415; 71045-TC; 80048-TC; 80061-TC; 83735-TC; 84100-TC; 84484-TC; 85025-TC; 97110-TC; 97116-TC; 97530-TC; 97535-TC; G0378; J1650